=== PATIENT | male | born 2000 ===

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

== ENCOUNTER 2021-01-01 15:19 | Outpatient (REF) | payer OTHER, SELFPAY ==
--- NOTE | ~2021-01-01 | US_ITS ---
EXAMINATION: US RETROPERITONEAL LIMITED (RENAL ONLY) CLINICAL INFORMATION: Calculus of kidney. COMPARISON: CT abdomen and pelvis 04/16/2020. Ultrasound abdomen limited 04/16/2020. Ultrasound abdomen complete 03/08/2020. KUB 05/21/2015. TECHNIQUE: Real-time imaging of the kidneys. FINDINGS: RIGHT KIDNEY: 10.0 x 4.3 x 5.1 cm (SAG x AP x TRV). The kidney is normal in size, contour, and echogenicity. Renal cortical thickness is normal. No calculi or focal parenchymal lesions. No hydronephrosis. LEFT KIDNEY: 11.5 x 5.1 x 4.9 cm (SAG x AP x TRV). The kidney is normal in size, contour, and echogenicity. Renal cortical thickness is normal. There are 2 stones measuring 6 mm and 4 mm in the lower pole. There is moderate left hydronephrosis unchanged from previous exams. No renal mass US/US renal BI IMPRESSION: Normal right kidney. Left renal stones. Moderate left hydronephrosis similar to previous exams.
== END 2021-01-01 15:20 | disposition home or self-care (01) ==
LOC: HO.US 15:19
PROVIDERS: Visit Provider Urology
DX: N20.0 Calculus of kidney (principal)
CPT/HCPCS: 76775

== ENCOUNTER 2021-01-28 18:02 | Emergency (ER) | payer OTHER, SELFPAY ==
[2021-01-28 19:20] VITALS: BP 119/70; PULSE 80; RESP 18; TEMP 36.4; O2SAT 97; BMI 40.0
--- NOTE | 2021-01-28 19:54 | ED.GENADULT ---
HPI - General Adult General Chief complaint: Ear Problems Stated complaint: covid +, sore throat Time Seen by Provider: 01/28/21 19:51 Source: patient History of Present Illness HPI narrative: Patient with approximately 4 days worth of URI symptoms. Positive rhinorrhea and loss of taste and smell. Over the past few days he has had bilateral ear pain. Worse with swallowing. He was tested yesterday had [facility] for COVID and the test was positive. No prior history of otitis media. No fevers or chills. No dyspnea. Related Data Home Medications Medication Instructions Recorded Confirmed fluoxetine 10 mg capsule 1 cap PO DAILY 03/08/20 03/19/20 cetirizine 10 mg tablet 10 mg PO DAILY 03/19/20 03/19/20 escitalopram oxalate 5 mg tablet 3 mg PO Q OTHER DAY PRN 06/12/20 triamcinolone acetonide 0.1 % TOPICAL 06/12/20 topical ointment Previous Rx's Medication Instructions Recorded acetaminophen 325 mg tablet 650 mg PO Q6H PRN #14 tab 03/09/20 (Tylenol) ibuprofen 800 mg tablet 800 mg PO Q8H PRN #14 tab 03/09/20 ondansetron HCl 4 mg tablet 4 mg PO Q8H PRN #10 tab 03/09/20 (Zofran) allopurinol 100 mg tablet 100 mg PO DAILY #90 tab 03/19/20 pyridoxine (vitamin B6) 100 mg 100 mg PO DAILY 90 Days #90 tab 03/19/20 tablet ondansetron HCl 4 mg tablet 4 mg PO Q8H PRN #10 tab 04/17/20 (Zofran) ibuprofen 400 mg tablet 400 mg PO Q6H PRN #20 tab 05/18/20 omeprazole 40 mg capsule,delayed 40 mg PO DAILY #20 cap 07/15/20 release sucralfate 1 gram tablet 1 g PO TID #30 tab 07/15/20 pyridoxine (vitamin B6) 100 mg 100 mg PO DAILY #90 tab 09/11/20 tablet acetaminophen 500 mg tablet 1,000 mg PO QID PRN #30 tab 10/13/20 cyclobenzaprine 5 mg tablet 5 mg PO TID PRN #10 tab 10/13/20 ibuprofen 600 mg tablet 600 mg PO Q6H PRN #20 tab 10/13/20 erythromycin 5 mg/gram (0.5 %) eye 0.5 inch OPHTHALMIC (EYE) QID 7 12/20/20 ointment Days #3.5 g oxymetazoline 0.05 % nasal mist 2 spray INTRANASAL Q12H PRN 3 Days 01/28/21 (Afrin (oxymetazoline)) ml Allergies Allergy/AdvReac Type Severity Reaction Status Date / Time No Known Allergies Allergy Verified 07/14/20 21:43 [No Known Allergies*] Review of Systems Constitutional: Constitutional: Denies fever(s) ENT: Comments: Rhinorrhea. Bilateral ear pain. Loss of taste and smell Cardiovascular: Comments: No chest pain Respiratory: Comments: Cough without dyspnea Gastrointestinal: Comments: No nausea vomiting PMFSH Past Medical History Medical History Kidney stones Migraines Surgical History History of removal of cyst Social History Social History Alcohol intake: never Advance Directives: No Advance Directives Information Provided: Yes Physical Exam Vital Signs: Vital Signs: Last Vital Signs Temp 97.6 F 01/28/21 19:20 Pulse 80 01/28/21 19:20 Resp 18 01/28/21 19:20 BP 119/70 01/28/21 19:20 Pulse Ox 97 01/28/21 19:20 Body Mass Index 40.0 Const: Other: Awake alert no acute distress HENMT: Other: Bilateral TMs with effusions but no erythema or purulence. Canals normal. Throat is normal. Resp: Other: Clear and equal bilaterally without wheezes rales or rhonchi Cardio: Other: Regular in rhythm Skin: Other: Warm pink and dry Course Course Course Narrative: COVID-19 upper respiratory infection without evidence of COVID-19 pneumonia. Bilateral TM effusions without evidence of otitis media Discharge Plan Discharge Clinical Impression: COVID-19 Patient Disposition: Home, Self-Care Instructions: Covid-19 Viral Syndrome and Novel Coronavirus (ED) Hey/Ath Prescriptions: New Afrin (oxymetazoline) 0.05 % mist 2 spray intranasal Q12H PRN (Reason: nasal congestion) 3 Days RF: 0 No Action pyridoxine (vitamin B6) 100 mg tablet 100 mg PO DAILY Qty: 90 RF: 1 fluoxetine 10 mg capsule 1 cap PO DAILY RF: 0 ibuprofen 800 mg tablet 800 mg PO Q8H PRN (Reason: pain) Qty: 14 RF: 0 acetaminophen [Tylenol] 325 mg tablet 650 mg PO Q6H PRN (Reason: pain) Qty: 14 RF: 0 ondansetron HCl [Zofran] 4 mg tablet 4 mg PO Q8H PRN (Reason: nausea and vomiting) Qty: 10 RF: 0 acetaminophen 500 mg tablet 1,000 mg PO QID PRN (Reason: pain) Qty: 30 RF: 0 cyclobenzaprine 5 mg tablet 5 mg PO TID PRN (Reason: muscle spasm) Qty: 10 RF: 0 ibuprofen 600 mg tablet 600 mg PO Q6H PRN (Reason: pain) Qty: 20 RF: 0 ondansetron HCl [Zofran] 4 mg tablet 4 mg PO Q8H PRN (Reason: nausea and vomiting) Qty: 10 RF: 0 ibuprofen 400 mg tablet 400 mg PO Q6H PRN (Reason: pain) Qty: 20 RF: 0 omeprazole 40 mg capsule,delayed release(DR/EC) 40 mg PO DAILY Qty: 20 RF: 0 sucralfate 1 gram tablet 1 g PO TID Qty: 30 RF: 0 erythromycin 5 mg/gram (0.5 %) ointment 0.5 inch ophthalmic (eye) QID 7 Days Qty: 3.5 RF: 0 cetirizine 10 mg tablet 10 mg PO DAILY RF: 0 allopurinol 100 mg tablet 100 mg PO DAILY Qty: 90 RF: 3 pyridoxine (vitamin B6) 100 mg tablet 100 mg PO DAILY 90 Days Qty: 90 RF: 0
== END 2021-01-28 20:19 | disposition home or self-care (01) ==
PROVIDERS: Emergency Provider Emergency Medicine; PCP Pediatrics
DX: U07.1 COVID-19 (principal); R43.8 Other disturbances of smell and taste; Z79.899 Other long term (current) drug therapy
CPT/HCPCS: 99283

== ENCOUNTER → 2021-02-04 10:41 | Outpatient (BNVA) | payer OTHER, SELFPAY | PROVIDERS: PCP Pediatrics; Visit Provider Urology ==

== ENCOUNTER 2021-03-08 17:33 | Emergency (ER) | payer OTHER, SELFPAY ==
[2021-03-08 17:35] VITALS: BP 129/54; PULSE 80; RESP 19; TEMP 36.6; O2SAT 99; BMI 41.4
[2021-03-08 18:41] VITALS: BP 103/61; PULSE 89; RESP 16; O2SAT 98
--- NOTE | 2021-03-08 18:47 | ED_ITS ---
HPI - Abdominal Pain General Chief Complaint: Abdominal Pain Stated Complaint: Abdominal pain Time Seen by Provider: 03/08/21 18:42 Source: patient Mode of arrival: ambulatory Limitations: no limitations History of Present Illness HPI narrative: Patient comes emergency room complaining of left upper quadrant pain since this morning after eating breakfast Patient complaining of nausea, no vomiting, no diarrhea. Denies fever chills. Related Data Home Medications Medication Instructions Recorded Confirmed fluoxetine 10 mg capsule 1 cap PO DAILY 03/08/20 03/19/20 cetirizine 10 mg tablet 10 mg PO DAILY 03/19/20 03/19/20 escitalopram oxalate 5 mg tablet 3 mg PO Q OTHER DAY PRN 06/12/20 triamcinolone acetonide 0.1 % TOPICAL 06/12/20 topical ointment escitalopram oxalate 10 mg tablet 10 mg PO DAILY 02/04/21 ketotifen fumarate 0.025 % (0.035 1 drp OPHTHALMIC (EYE) BID 02/04/21 %) eye drops Previous Rx's Medication Instructions Recorded acetaminophen 325 mg tablet 650 mg PO Q6H PRN #14 tab 03/09/20 (Tylenol) ibuprofen 800 mg tablet 800 mg PO Q8H PRN #14 tab 03/09/20 ondansetron HCl 4 mg tablet 4 mg PO Q8H PRN #10 tab 03/09/20 (Zofran) allopurinol 100 mg tablet 100 mg PO DAILY #90 tab 03/19/20 pyridoxine (vitamin B6) 100 mg 100 mg PO DAILY 90 Days #90 tab 03/19/20 tablet ondansetron HCl 4 mg tablet 4 mg PO Q8H PRN #10 tab 04/17/20 (Zofran) ibuprofen 400 mg tablet 400 mg PO Q6H PRN #20 tab 05/18/20 omeprazole 40 mg capsule,delayed 40 mg PO DAILY #20 cap 07/15/20 release sucralfate 1 gram tablet 1 g PO TID #30 tab 07/15/20 acetaminophen 500 mg tablet 1,000 mg PO QID PRN #30 tab 10/13/20 cyclobenzaprine 5 mg tablet 5 mg PO TID PRN #10 tab 10/13/20 ibuprofen 600 mg tablet 600 mg PO Q6H PRN #20 tab 10/13/20 erythromycin 5 mg/gram (0.5 %) eye 0.5 inch OPHTHALMIC (EYE) QID 7 12/20/20 ointment Days #3.5 g oxymetazoline 0.05 % nasal mist 2 spray INTRANASAL Q12H PRN 3 Days 01/28/21 (Afrin (oxymetazoline)) ml pyridoxine (vitamin B6) 100 mg 100 mg PO DAILY 90 Days #90 tab 02/04/21 tablet omeprazole 20 mg capsule,delayed 20 mg PO DAILY #14 cap 03/08/21 release simethicone 180 mg capsule (Gas 180 mg PO BID PRN #14 cap 03/08/21 Relief (simethicone)) Allergies Allergy/AdvReac Type Severity Reaction Status Date / Time No Known Allergies Allergy Verified 02/04/21 10:42 [No Known Allergies*] Review of Systems Review of Systems Constitutional : No Weight loss, No Fever, No Chills, No Night Sweats, No Fati nahum, No Malaise ENT/Mouth : No Hearing loss, No Ear Pain, No Nasal Congestion, No Sinus Pain, No Hoarseness, No sore throat, No Rhinorrhea, No Swallowing Difficulty Eyes: No Eye Pain, No Swelling, No Redness, No Foreign Body, No Discharge, No Vision Changes Cardiovascular : No Chest Pain, No SOB, No Dyspnea on Exertion, No Orthopnea, No Edema, No Palpitations Respiratory : No Cough, No Sputum, No Wheezing, No Smoke Exposure, No Dyspnea Gastrointestinal : Complaining of Nausea, No Vomiting, No Diarrhea, No Constipation, complaining of constant left upper quadrant pain, No Hematochezia, No Melena Genitourinary : no irregular bleeding, No Dysuria, No Urinary Frequency, No Hematuria, No Urinary Incontinence, No Urgency, No Flank Pain, No Urinary Flow Changes, No Hesitancy Musculoskeletal : No joint pain, No Myalgias, No Joint Swelling Skin : No Skin Lesions, No rash Neuro : No Weakness, No Numbness, No Paresthesias, No Loss of Consciousness, No Dizziness, No Headache Psych : No Anxiety/Panic, No Depression, No SI/HI/AH/VH, No Social Issues, Heme/Lymph: No Bruising, No Bleeding,No Lymphadenopathy Endocrine : No Polyuria, No Polydipsia, No Temperature Intolerance Physical Exam Vital Signs: Vital Signs: Last Vital Signs Temp 98 F 03/08/21 17:35 Pulse 89 03/08/21 18:41 Resp 16 03/08/21 18:41 BP 103/61 03/08/21 18:41 Pulse Ox 98 03/08/21 18:41 Body Mass Index 41.4 Const: Other: Appearance: Alert. Oriented X3. No acute distress. Well- appearing Eyes: Pupils equal, round and reactive to light. ENT: Pharynx normal. Neck: Normal inspection. Neck supple. No lymph nodes noted. No crepitus CVS: Normal heart rate and rhythm. Pulses normal. Normal S1 and S2 Respiratory: No respiratory distress. Breath sounds normal. No Wheezing. No rales Abdomen: Soft and nontender. No rigidity. No distention. Skin: Skin warm and dry. Normal skin color. Normal skin turgor. Extremities: No lower extremity edema. No lower extremity edema. No Lacerations. No Rash Neuro: Oriented X 3. No motor deficit. No sensory deficit. Moving all extermities. No slurred speech. Course Course Course Narrative: Patient feels better after GI cocktail. Patient's labs do not show any acute pathology. Patient likely having gastritis. MDM - Abdominal Pain Lab Data Result diagrams: 03/08/21 19:05 03/08/21 19:05 Labs: Lab Results 03/08/21 03/08/21 03/08/21 Range/Units 19:05 19:05 20:28 WBC 10.5 (4.8-10.8) X10*3/uL RBC 4.83 (4.60-5.80) X10*6/uL Hgb 14.5 (14.0-18.0) g/dl Hct 43.0 (42.0-52.0) % MCV 89.0 (80.0-98.0) fL MCH 30.0 (27.0-33.0) pg MCHC 33.7 (31.0-36.0) g/dl RDW 12.2 (11.0-16.0) % Plt Count 360 (160-400) X10*3/uL MPV 8.6 L (9.4-12.4) fL Immature Gran % (Auto) 0.3 (0.0-0.4) % Neut % (Auto) 56.9 (45-73) % Lymph % (Auto) 28.3 (20-40) % [place] % (Auto) 11.5 H (2-11) % Eos % (Auto) 2.5 (0-4) % Baso % (Auto) 0.5 (0-2) % Lymph # (Auto) 3.0 (1.2-4.9) X10*3/uL [place] # (Auto) 1.2 (0.1-1.2) X10*3/uL Eos # (Auto) 0.3 (0.0-0.4) X10*3/uL Baso # (Auto) 0.1 (0.0-0.2) X10*3/uL Abs Immat Gran (auto) 0.03 (0.00-0.03) X10*3/uL Absolute Neuts (auto) 6.0 (2.0-8.3) x10*3/uL Absolute Nucleated RBC 0.000 (0.0-0.012) X10*3/uL Nucleated RBC % (auto) 0.0 (0.0-0.2) /100WBC Sodium 140 (135-145) mmol/L Potassium 3.9 (3.3-5.1) mmol/L Chloride 103 (96-108) mmol/L Carbon Dioxide 29 (22-29) mmol/L Anion Gap 12 (12-20) BUN 14 (9-16) mg/dL Creatinine 0.87 (0.5-1.4) mg/dL Estim Creat Clear Calc 146.7 Estimated GFR > 60 Random Glucose 69 D (60-115) mg/dL Calcium 9.2 D (8.4-10.2) mg/dL Total Bilirubin 0.2 (0.0-1.0) mg/dL Direct Bilirubin < 0.2 (0.0-0.5) mg/dL AST 21 (5-37) U/L ALT 36 (0-40) U/L Alkaline Phosphatase 116 (39-117) U/L Total Protein 7.8 (6.5-8.0) g/dL Albumin 4.3 (3.5-5.0) g/dL Lipase 35 (8-78) U/L Urine Color YELLOW Urine Appearance CLEAR Urine pH 6.0 (5.0-8.0) Ur Specific [place] >= 1.030 H (1.005-1.025) Urine Protein NEG (NEG-TRACE) MG/DL Urine Glucose (UA) NEG (NEG) MG/DL Urine Ketones NEG (NEG) MG/DL Urine Blood NEG (NEG) Urine Nitrite NEG (NEG) Ur Leukocyte Esterase NEG (NEG) Discharge Plan Discharge Clinical Impression: Gastritis Qualifiers: Gastritis type: unspecified gastritis Chronicity: acute Gastritis bleeding: without bleeding Qualified Code(s): K29.00 - Acute gastritis without bleeding Patient Disposition: Home, Self-Care Instructions: Gastritis (ED) Additional Instructions: Please follow-up with your primary care physician tomorrow. If you have any worsening or new symptoms, please return to the emergency room or call 911 Prescriptions: New omeprazole 20 mg capsule,delayed release(DR/EC) 20 mg PO DAILY Qty: 14 RF: 0 simethicone [Gas Relief (simethicone)] 180 mg capsule 180 mg PO BID PRN (Reason: abdominal distention) Qty: 14 RF: 0 No Action fluoxetine 10 mg capsule 1 cap PO DAILY RF: 0 ibuprofen 800 mg tablet 800 mg PO Q8H PRN (Reason: pain) Qty: 14 RF: 0 acetaminophen [Tylenol] 325 mg tablet 650 mg PO Q6H PRN (Reason: pain) Qty: 14 RF: 0 ondansetron HCl [Zofran] 4 mg tablet 4 mg PO Q8H PRN (Reason: nausea and vomiting) Qty: 10 RF: 0 acetaminophen 500 mg tablet 1,000 mg PO QID PRN (Reason: pain) Qty: 30 RF: 0 cyclobenzaprine 5 mg tablet 5 mg PO TID PRN (Reason: muscle spasm) Qty: 10 RF: 0 ibuprofen 600 mg tablet 600 mg PO Q6H PRN (Reason: pain) Qty: 20 RF: 0 ondansetron HCl [Zofran] 4 mg tablet 4 mg PO Q8H PRN (Reason: nausea and vomiting) Qty: 10 RF: 0 ibuprofen 400 mg tablet 400 mg PO Q6H PRN (Reason: pain) Qty: 20 RF: 0 omeprazole 40 mg capsule,delayed release(DR/EC) 40 mg PO DAILY Qty: 20 RF: 0 sucralfate 1 gram tablet 1 g PO TID Qty: 30 RF: 0 erythromycin 5 mg/gram (0.5 %) ointment 0.5 inch ophthalmic (eye) QID 7 Days Qty: 3.5 RF: 0 Afrin (oxymetazoline) 0.05 % mist 2 spray intranasal Q12H PRN (Reason: nasal congestion) 3 Days RF: 0 cetirizine 10 mg tablet 10 mg PO DAILY RF: 0 allopurinol 100 mg tablet 100 mg PO DAILY Qty: 90 RF: 3 pyridoxine (vitamin B6) 100 mg tablet 100 mg PO DAILY 90 Days Qty: 90 RF: 0 pyridoxine (vitamin B6) 100 mg tablet 100 mg PO DAILY 90 Days Qty: 90 RF: 3 PMFSH Past Medical History Medical History Kidney stones Migraines Surgical History History of removal of cyst Social History Social History Alcohol intake: never Advance Directives: No Advance Directives Information Provided: No
[2021-03-08] MEDS: Magnesium Hydrox/Alum Hydrox 30 ML ORAL.SUSP PO (19:10)
[2021-03-08] MEDS: Ondansetron ODT 4 MG TAB.RAPDIS TRANSLINGU (19:10)
[2021-03-08] MEDS: Lidocaine HCl Viscous 2 % 15 ML SOLUTION MUCOUS MEM (19:10)
[2021-03-08 19:11] LABS: MANUAL DIFF FLAG NO
[2021-03-08 19:13] LABS: Basophils Absolute Auto 0.1 X10*3/uL (0.0-0.2); Basophils Percent Auto 0.5 % (0-2); Eosinophils Absolute Auto 0.3 X10*3/uL (0.0-0.4); Eosinophils Percent Auto 2.5 % (0-4); Hemoglobin 14.5 g/dl (14.0-18.0); Imm Gran Abs Auto 0.03 X10*3/uL (0.00-0.03); Imm Gran Pct Auto 0.3 % (0.0-0.4); Lymphocytes Percent Auto 28.3 % (20-40); Mean Corpuscular HGB Conc 33.7 g/dl (31.0-36.0); Mean Platelet Volume 8.6 fL (9.4-12.4); Monocytes Absolute Auto 1.2 X10*3/uL (0.1-1.2); Monocytes Percent Auto 11.5 % (2-11); Neutrophils Percent Auto 56.9 % (45-73); Platelet Count 360 X10*3/uL (160-400); Red Blood Count 4.83 X10*6/uL (4.60-5.80); Red Cell Distribution Width 12.2 % (11.0-16.0); White Blood Count 10.5 X10*3/uL (4.8-10.8)
--- NOTE | 2021-03-08 19:14 | PC.NURSE ---
Pt c/o of abd pain and nausea. pt alert and sitting up in stretcher. Pt medicated as per emar.
[2021-03-08 19:27] LABS: Alanine Aminotransferase 36 U/L (0-40); Albumin Level 4.3 g/dL (3.5-5.0); Alkaline Phosphatase 116 U/L (39-117); Anion Gap 12 (12-20); Aspartate Amino Transferase 21 U/L (5-37); Bilirubin Direct < 0.2 mg/dL (0.0-0.5); Bilirubin Total 0.2 mg/dL (0.0-1.0); Blood Urea Nitrogen 14 mg/dL (9-16); Calcium 9.2 mg/dL (8.4-10.2); Carbon Dioxide 29 mmol/L (22-29); Chloride 103 mmol/L (96-108); Creatinine Clr Calc Pharmacy 146.7; Estimated Glomerular Filt Rate > 60; Glucose Random 69 mg/dL (60-115); Lipase 35 U/L (8-78); Potassium 3.9 mmol/L (3.3-5.1); Sodium 140 mmol/L (135-145); Total Protein 7.8 g/dL (6.5-8.0)
[2021-03-08 20:34] LABS: Appearance Urine CLEAR; Color Urine YELLOW; Glucose Urine UA NEG (NEG); Leukocyte Esterase Urine NEG (NEG); Nitrite Urine NEG (NEG); Specific Gravity - Urine >= 1.030 (1.005-1.025); Urine Blood NEG (NEG); Urine Ketones NEG (NEG); Urine Protein NEG (NEG-TRACE)
== END 2021-03-08 21:02 | disposition home or self-care (01) ==
PROVIDERS: Emergency Provider Emergency Medicine; PCP Pediatrics
DX: K29.00 Acute gastritis without bleeding (principal); R10.12 Left upper quadrant pain; Z79.899 Other long term (current) drug therapy
CPT/HCPCS: 36415; 80048; 80076; 81003; 83690; 85025; 99284

== ENCOUNTER 2022-01-12 13:12 | Outpatient (REF) | payer OTHER, SELFPAY ==
--- NOTE | ~2022-01-12 | US_ITS ---
EXAMINATION: US RETROPERITONEAL LIMITED (RENAL ONLY) CLINICAL INFORMATION: Calculus of kidney. COMPARISON: Ultrasound renal 01/01/2021. CT abdomen pelvis 04/16/2020. Ultrasound abdomen limited 04/16/2020. TECHNIQUE: Real-time imaging of the kidneys. FINDINGS: RIGHT KIDNEY: 12.5 x 5.7 x 5.8 cm (SAG x AP x TRV). The kidney is normal in size, contour, and echogenicity. Renal cortical thickness is normal. No calculi or focal parenchymal lesions. No hydronephrosis. LEFT KIDNEY: 11.6 x 5.3 x 5.2 cm (SAG x AP x TRV). The kidney is normal in size, contour, and echogenicity. Renal cortical thickness is normal. No focal parenchymal lesions. There is moderate hydronephrosis. At the interpolar aspect, a 5 mm nonobstructing calculus is seen. At the lower pole, 6 mm and 1.0 cm nonobstructing calculi are seen. US/US renal BI IMPRESSION: 1. A nonobstructing left renal calculi, as detailed. No right renal calculus is seen. 2. There is a moderate left hydronephrosis, and no right hydronephrosis is seen.
== END 2022-01-12 13:13 | disposition home or self-care (01) ==
LOC: HO.US 13:12
PROVIDERS: Visit Provider Urology
DX: N20.0 Calculus of kidney (principal)
CPT/HCPCS: 76775

== ENCOUNTER → 2022-02-04 14:28 | Outpatient (BNVA) | payer OTHER, SELFPAY | PROVIDERS: PCP Pediatrics; Visit Provider Urology | DX: N20.0 Calculus of kidney (principal); N13.30 Unspecified hydronephrosis | CPT/HCPCS: 99212 ==

== ENCOUNTER 2022-10-10 16:31 | Emergency (ER) | payer OTHER, SELFPAY ==
--- NOTE | ~2022-10-10 | XR_ITS ---
EXAMINATION: XR SHOULDER, LEFT CLINICAL INFORMATION: Pain COMPARISON: None available. TECHNIQUE: AP external rotation, Grashey, scapular Y, and axillary views of the left shoulder. FINDINGS: No evidence of acute fracture or dislocation. Glenohumeral and acromioclavicular alignment is anatomic with normal joint space. No abnormal soft tissue calcifications. Intact left clavicle. XR/XR shoulder LT min 2V IMPRESSION: No radiographic evidence of acute fracture or dislocation.
[2022-10-10 16:50] VITALS: BP 110/68; PULSE 88; RESP 18; TEMP 36.6; O2SAT 97; BMI 36.0
--- NOTE | 2022-10-10 16:51 | ED_ITS ---
HPI - Extremity Problem General Chief complaint: Extremity Injury, Upper Stated complaint: left shoulder and back pain Time Seen by Provider: 10/10/22 17:18 History of Present Illness HPI Narrative: Patient complains of left lateral neck and trapezius pain for past 2-3 days, no known injury It hurts when he moves but there is no radiation of pain no numbness weakness or tingling no muscle weakness no change to bowel or bladder He denies any rash or redness no fevers no chest pain no shortness of breath Related Data Home Medications Medication Instructions Recorded Confirmed fluoxetine 10 mg capsule 1 cap PO DAILY 03/08/20 02/04/22 cetirizine 10 mg tablet 10 mg PO DAILY 03/19/20 02/04/22 escitalopram oxalate 5 mg tablet 3 mg PO Q OTHER DAY PRN 06/12/20 02/04/22 triamcinolone acetonide 0.1 % topical 06/12/20 02/04/22 topical ointment escitalopram oxalate 10 mg tablet 10 mg PO DAILY 02/04/21 02/04/22 ketotifen fumarate 0.025 % (0.035 1 drp ophthalmic (eye) BID 02/04/21 02/04/22 %) eye drops Previous Rx's Medication Instructions Recorded acetaminophen 325 mg tablet 650 mg PO Q6H PRN pain #14 tabs 03/09/20 (Tylenol) ibuprofen 800 mg tablet 800 mg PO Q8H PRN pain #14 tabs 03/09/20 ondansetron HCl 4 mg tablet 4 mg PO Q8H PRN nausea and 03/09/20 (Zofran) vomiting #10 tabs allopurinol 100 mg tablet 100 mg PO DAILY #90 tabs 03/19/20 pyridoxine (vitamin B6) 100 mg 100 mg PO DAILY 90 days #90 tabs 03/19/20 tablet ondansetron HCl 4 mg tablet 4 mg PO Q8H PRN nausea and 04/17/20 (Zofran) vomiting #10 tabs ibuprofen 400 mg tablet 400 mg PO Q6H PRN pain #20 tabs 05/18/20 omeprazole 40 mg capsule,delayed 40 mg PO DAILY #20 caps 07/15/20 release sucralfate 1 gram tablet 1 g PO TID #30 tabs 07/15/20 acetaminophen 500 mg tablet 1,000 mg PO QID PRN pain #30 tabs 10/13/20 cyclobenzaprine 5 mg tablet 5 mg PO TID PRN muscle spasm #10 10/13/20 tabs ibuprofen 600 mg tablet 600 mg PO Q6H PRN pain #20 tabs 10/13/20 erythromycin 5 mg/gram (0.5 %) eye 0.5 inch ophthalmic (eye) QID 12/20/20 ointment Bacterial conjunctivitis 7 days #3.5 grams oxymetazoline 0.05 % nasal mist 2 spray intranasal Q12H PRN nasal 01/28/21 (Afrin (oxymetazoline)) congestion 3 days pyridoxine (vitamin B6) 100 mg 100 mg PO DAILY 90 days #90 tabs 02/04/21 tablet omeprazole 20 mg capsule,delayed 20 mg PO DAILY #14 caps 03/08/21 release simethicone 180 mg capsule (Gas 180 mg PO BID PRN abdominal 03/08/21 Relief (simethicone)) distention #14 caps cyclobenzaprine 5 mg tablet 5 mg PO TID PRN muscle spasm #14 10/10/22 tabs ibuprofen 600 mg tablet 600 mg PO Q6H PRN pain #20 tabs 10/10/22 Allergies Allergy/AdvReac Type Severity Reaction Status Date / Time No Known Allergies Allergy Verified 02/02/22 11:29 [No Known Allergies*] [facility], LAT[facility] Past Medical History Source: nursing notes reviewed Medical History Kidney stones Migraines Surgical History History of removal of cyst Social History Social History Alcohol intake: never Advance Directives: No Advance Directives Information Provided: No Physical Exam Vital Signs: Vital Signs: Last Vital Signs Temp 97.8 F 10/10/22 16:50 Pulse 88 10/10/22 16:50 Resp 18 10/10/22 16:50 BP 110/68 10/10/22 16:50 Pulse Ox 97 10/10/22 16:50 O2 Del Method Room Air 10/10/22 16:50 BMI result Body Mass Index 36.0 General appearance is no distress Head is normocephalic atraumatic The neck is supple with good range back and forth but pain with lateral motion and limited range of motion in lateral motion, there is tenderness to the left lateral lower neck as well as tenderness to the left trapezius Skin of the neck and trapezius is totally normal there is no swelling no redness no warmth no rash Chest is clear to auscultation bilateral no chest wall tenderness Chest wall is normal in appearance no rash Heart no murmur No tenderness to chest wall Abdomen soft nontender Extremities full range of motion x4 including left shoulder The back no significant tenderness except posterior trapezius, full range of motion 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 Pain is worse with full abduction of the arm and rotation of the head to the left. Plan: x-ray shoulder Patient likely has strained or irritated trapezius muscle, no neurologic deficit no sign of any skin infection, and patient is treated with Motrin and muscle relaxer and well-appearing patient is discharged Discharge Plan Discharge Clinical Impression: Neck pain, Trapezius strain Patient Disposition: Home, Self-Care Additional Instructions: Pain is likely from strained muscles in the left side of neck and trapezius muscle This usually resolves on its own in a few days Motrin may reduce inflammation and muscle relaxer if needed but it may cause drowsiness so only for home use Follow with her doctor next week if not better Return any time for any worse condition or any concerns Prescriptions: New ibuprofen 600 mg tablet 600 mg PO Q6H PRN (Reason: pain) Qty: 20 0RF cyclobenzaprine 5 mg tablet 5 mg PO TID PRN (Reason: muscle spasm) Qty: 14 0RF No Action fluoxetine 10 mg capsule 1 cap PO DAILY ibuprofen 800 mg tablet 800 mg PO Q8H PRN (Reason: pain) Qty: 14 0RF acetaminophen [Tylenol] 325 mg tablet 650 mg PO Q6H PRN (Reason: pain) Qty: 14 0RF ondansetron HCl [Zofran] 4 mg tablet 4 mg PO Q8H PRN (Reason: nausea and vomiting) Qty: 10 0RF acetaminophen 500 mg tablet 1,000 mg PO QID PRN (Reason: pain) Qty: 30 0RF cyclobenzaprine 5 mg tablet 5 mg PO TID PRN (Reason: muscle spasm) Qty: 10 0RF ibuprofen 600 mg tablet 600 mg PO Q6H PRN (Reason: pain) Qty: 20 0RF ondansetron HCl [Zofran] 4 mg tablet 4 mg PO Q8H PRN (Reason: nausea and vomiting) Qty: 10 0RF ibuprofen 400 mg tablet 400 mg PO Q6H PRN (Reason: pain) Qty: 20 0RF omeprazole 40 mg capsule,delayed release(DR/EC) 40 mg PO DAILY Qty: 20 0RF sucralfate 1 gram tablet 1 g PO TID Qty: 30 0RF erythromycin 5 mg/gram (0.5 %) ointment 0.5 inch ophthalmic (eye) QID 7 Days Qty: 3.5 0RF Afrin (oxymetazoline) 0.05 % mist 2 spray intranasal Q12H PRN (Reason: nasal congestion) 3 Days 0RF omeprazole 20 mg capsule,delayed release(DR/EC) 20 mg PO DAILY Qty: 14 0RF simethicone [Gas Relief (simethicone)] 180 mg capsule 180 mg PO BID PRN (Reason: abdominal distention) Qty: 14 0RF cetirizine 10 mg tablet 10 mg PO DAILY allopurinol 100 mg tablet 100 mg PO DAILY Qty: 90 3RF pyridoxine (vitamin B6) 100 mg tablet 100 mg PO DAILY 90 Days Qty: 90 0RF escitalopram oxalate 5 mg tablet 3 mg PO Q OTHER DAY PRN triamcinolone acetonide 0.1 % ointment topical escitalopram oxalate 10 mg tablet 10 mg PO DAILY ketotifen fumarate 0.025 % (0.035 %) drops 1 drp ophthalmic (eye) BID pyridoxine (vitamin B6) 100 mg tablet 100 mg PO DAILY 90 Days Qty: 90 3RF Stand Alone Forms: Work/School Release
--- OUTSIDE RECORDS SUMMARY | 2022-10-10 17:53 | XMS_ITS | Continuity of Care Document ---
Author Name Unknown Organization [facility] Address [address] [place] [address]- Care Team Providers Care Pipe Racker Name Role Phone Gwen MOHR, Evie Primary Care Physician Encounter [facility] [place] Date(s): 04/17/20 - 04/22/20 [facility] [address] [place] [address]- Discharge Disposition: A-D/C Home Attending Physician: Raymond Capps MD Admitting Physician: Raymond Capps MD Referring Physician: Not on Staff, Referring MD Allergies, Adverse Reactions, Alerts Substance Reaction Severity Status NKA Active Immunizations Not Given Vaccine Date Status Refusal Reason pneumococcal 23-valent vaccine 04/18/20 Not Given Patient Refuses Medications LORazepam 1 mg oral tablet See Instructions, 1 tablet by mouth daily for two days. Then take 1/2 tablet by mouth for two days.Then stop, # 3 tablet, 0 Refills, Maintenance, 04/22/20 13:36:00 EST, [facility]/pharmacy #[id number], Partial fill upon patient request if the prescription is for... Start Date: 04/22/20 Status: Ordered Vital Signs Most recent to oldest [Reference Range]: 1 2 3 Height 167 cm (04/22/20 10:16 AM) 167 cm (04/21/20 9:31 PM) 167 cm (04/21/20 10:20 AM) Weight 60.4 kg (04/17/20 8:39 PM) 50 kg (04/17/20 6:48 PM) Oxygen Saturation [94-100 %] 100 % (04/22/20 10:16 AM) 99 % (04/21/20 9:31 PM) 100 % (04/21/20 10:20 AM) Pulse Rate [55-90 bpm] 101 bpm *H* (04/22/20 10:16 AM) 68 bpm (04/21/20 9:31 PM) 97 bpm *H* (04/21/20 10:20 AM) Body Mass Index [18.5-24.99] 21.66 (04/17/20 8:39 PM) Blood Pressure [90-138/55-84 mm Hg] 134/93mm Hg (04/22/20 10:16 AM) 131/73mm Hg (04/21/20 9:31 PM) 129/70mm Hg (04/21/20 10:20 AM) Respiratory Rate [16-30 br/min] 16 br/min (04/22/20 10:16 AM) 16 br/min (04/22/20 9:00 AM) 16 br/min (04/21/20 9:31 PM) Temperature [96.8-100.4 DegF] 97.1 DegF (04/22/20 10:16 AM) 97.8 DegF (04/21/20 9:31 PM) 98 DegF (04/21/20 10:20 AM) Mode of Delivery (Oxygen) Room air (04/21/20 9:31 PM) Room air (04/21/20 10:20 AM) Room air (04/20/20 9:36 PM) Blood pressure sites Arm, left (04/22/20 10:16 AM) Arm, left (04/21/20 10:20 AM) Arm, right (04/20/20 9:36 PM) Temperature Route Tympanic (04/22/20 10:16 AM) Tympanic (04/21/20 10:20 AM) Oral (04/20/20 9:36 PM) Dry Weight 60.4 kg (04/17/20 8:39 PM) 50 kg (04/17/20 6:48 PM) Sensory deficits None (04/17/20 8:39 PM)
--- OUTSIDE RECORDS SUMMARY | 2022-10-10 17:53 | XMS_ITS | Continuity of Care Document ---
Author Name Unknown Organization [facility] Address [address] [place] [address]- Care Team Providers Care Pediatric Audiologist Name Role Phone Murphy De Leon MD Primary Care Physician [place] [facility] [id number] Date(s): 09/07/22 - 10/07/22 [facility] [address] [place], [place] [address] Allergies, Adverse Reactions, Alerts No Known Allergies Medications acetaminophen 325 mg oral tablet 650 mg, 2, tablet, By Mouth, Every 4 hours, not to exceed 4000 mg/day, # 60 tablet, Refills 0, Tot.Refills 0, Maintenance, 11/03/19 8:35:00 EDT, Print Requisition Start Date: 11/03/19 Stop Date: 11/08/19 Status: Ordered Escitalopram By Mouth, Daily, 0 Refills, Maintenance, 06/27/20 15:12:00 EST, Partial fill upon patient request if the prescription is for a schedule II opioid drug. Start Date: 06/27/20 Status: Ordered Vitamin B6 Daily, 0 Refills, Maintenance, 06/27/20 15:12:00 EST, Partial fill upon patient request if the prescription is for a schedule II opioid drug. Start Date: 06/27/20 Status: Ordered ZyrTEC 10 mg oral tablet 1 tablet = 10 mg, By Mouth, Daily, # 30 tablet, 0 Refills, Maintenance, 10/13/19 10:01:00 EDT, Tablet Start Date: 10/13/19 Status: Ordered Problem List Condition Confirmation Course Effective Dates Status Health St atus Informant Rash 1 Confirmed Active Kidney stone Confirmed Active 1ezcema Social History Social History Type Response Smoking Status Never (less than 100 in lifetime) entered on: 12/01/18 Sex Male Patient Care team information Care Team Personnel Name: Murphy De Leon MD Position: [facility] General Pediatrics MD Member Role: PCP Address: Address: [address] [place] [address] [facility] [place], [place] - Care Team Related Persons Name: SANDHYA ENCISOCHETRUKHSANA Address: home [address], [place] Name: PIPO RIVERA Address: home [place], [place] Name: DANDRE MORALES Address: home [address], [place]
--- OUTSIDE RECORDS SUMMARY | 2022-10-10 17:53 | XMS_ITS | Continuity of Care Document ---
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 Start Date: 04/22/20 Status: Ordered
== END 2022-10-10 18:29 | disposition home or self-care (01) ==
PROVIDERS: Emergency Provider Emergency Medicine; PCP Internal Medicine
DX: M54.2 Cervicalgia (principal); S46.812A Strain of other muscles, fascia and tendons at shoulder and upper arm level, left arm, initial encounter; X50.0XXA Overexertion from strenuous movement or load, initial encounter; Y93.89 Activity, other specified; Y92.019 Unspecified place in single-family (private) house as the place of occurrence of the external cause; Y99.9 Unspecified external cause status
CPT/HCPCS: 73030; 99282; 99283

== ENCOUNTER → 2023-01-21 10:42 | Outpatient (REF) | payer OTHER, SELFPAY ==
--- NOTE | ~2023-01-21 | NM_ITS ---
EXAM: DYNAMIC RENAL SCINTIGRAPHY WITH LASIX CLINICAL DATA/INDICATION: Left-sided hydronephrosis. COMPARISON: Prior radionuclide scintigraphy study done on 05/14/2020 and most recent prior abdominal ultrasound done on 01/12/2022 CT of the abdomen and pelvis done on 04/16/2020. TECHNIQUE: Dynamic renal scintigraphy was performed after intravenous administration of 10 mCi Tc-99m DTPA. 40 mg of furosemide was administered at 30 minutes and continued dynamic imaging of the abdomen/pelvis was obtained for additional 15 minutes (post Lasix) only. The patient was unable to hold beyond 15 minutes post Lasix and at the request of the patient the study was stopped. Following using the restroom/voiding, an additional post void image was obtained. FINDINGS: RENAL BLOOD FLOW: Initial rapid sequence images show prompt and bilaterally symmetrical flow to the kidneys. CORTICAL FUNCTION: On the right there is prompt, symmetrical, and homogeneous cortical uptake. On the left there is delayed time to peak. Both kidneys appear normal in size. CLEARANCE: The calculated split renal function is 46.3% left, previously 44% and 53.7% right, previously 56%. Bilaterally, prompt pelvic calyceal filling is demonstrated. There is progressive tracer accumulation within the distended left renal pelvicalyceal system with significant washout after Lasix administration. The right renal pelvicalyceal system is not distended and shows progressive washout before administration of Lasix. Calculated T half of Lasix on the left is 7.75 minutes, demonstrating a nonobstructing pattern. No meaningful T1 half of Lasix on the right is calculated since the pelvicalyceal system do not show any significant retention prior to administration of Lasix. Postvoid planar imaging shows mild asymmetric retention on the left and complete clearance on the right. NM/NM renal flow w pharm int IMPRESSION: 1. Calculated split renal function is 46.3% left, previously 44% and 53.7% right, previously 56%. 2. Clearance half time demonstrates a nonobstructing pattern on the left, similar to prior study dated 05/14/2020.
== END ==
LOC: HO.NUCMED 10:42
PROVIDERS: PCP Internal Medicine; Visit Provider Urology
DX: N13.30 Unspecified hydronephrosis (principal)
CPT/HCPCS: 78708; A9539; J1940

== ENCOUNTER 2023-02-04 10:59 | Outpatient (AMB) | payer OTHER, SELFPAY ==
--- NOTE | 2023-02-04 11:02 | MHC.OFFVIS ---
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: No Accompanied by: Self / Same As Patient Allergies No Known Allergies [No Known Allergies*] Allergy (Verified 02/04/23 11:05) Medication List - Last Reconciled 02/04/23 by Joel Marcus MD acetaminophen (Tylenol) 650 mg (2 x 325 mg) PO Q6H PRN acetaminophen 1,000 mg (2 x 500 mg) PO QID PRN cetirizine 10 mg PO DAILY cyclobenzaprine 5 mg PO TID PRN erythromycin 0.5 inches ophthalmic (eye) QID 7 days escitalopram oxalate 3 mg PO Q OTHER DAY PRN escitalopram oxalate 10 mg PO DAILY fluoxetine 1 cap PO DAILY ibuprofen 400 mg PO Q6H PRN ibuprofen 600 mg PO Q6H PRN ketotifen fumarate 0.025%(0.035%) 1 drp ophthalmic (eye) BID omeprazole 20 mg PO DAILY ondansetron HCl (Zofran) 4 mg PO Q8H PRN oxymetazoline 0.05% (Afrin (oxymetazoline)) 2 sprays intranasal Q12H PRN 3 days pyridoxine (vitamin B6) 100 mg PO DAILY 90 days simethicone (Gas Relief (simethicone)) 180 mg PO BID PRN sucralfate 1 g PO TID triamcinolone acetonide 0.1% topical HPI HPI Comments History of Present Illness Details Brian is a pleasant male. He is a patient of Dr. De Leon. He is seen for the following urologic conditions - nephrolithiasis Renogram normal Repeat ultrasound 12 month Repeat renogram normal 01/23 - . Calculated split renal function is 46.3% left, previously 44% and 53.7% right, previously 56%.2. Clearance half time demonstrates a nonobstructing pattern on the left, similar to prior study dated 05/14/2020. Nephrolithiasis/Urolithiasis: Follow-up evaluation of nephrolithiasis in hydronephrosis on left side Renogram findings - prompt washout bilaterally, T half 10 minutes bilateral. Left 45%, right 55%. Chronic left mild to moderate hydronephrosis with no outlet obstruction They are here for further evaluation for nephrolithiasis and hydronephrosis - seen in the ER for left-sided flank pain. This is currently resolved. Urolithiasis was diagnosed First presentation. The patient previously had kidney stones whose composition w unknown. Prior treatment(s) include Vit B6. Prior imaging includes 07/20 , a CT (computed tomography) scan of the abdomen/pelvis (stone protocol), showing no evidence of stones, showing hydronephrosis - left side mild hydronephrosis. - 02/20 renal ultrasound with 4 mm and 6 mm left lower pole stones in mild chronic hydronephrosis - 02/21 renal ultrasound with 6 mm and 8 mm left lower pole stones in marked chronic hydronephrosis Current therapeutic plan will be to continue with imaging surveillance [facility] Medical History Kidney stones Migraines Surgical History History of removal of cyst Social History Alcohol intake: never Review of Systems Const Denies chills and Denies fever(s) Card Reports no additional complaints and Denies syncope Resp Denies cough GI Denies abdominal pain and Denies heartburn Reports as per HPI and Denies change in libido Neuro Denies syncope Psych Denies change in libido Endo Denies change in libido Physical Exam Const General: cooperative, healthy appearing, comfortable and no acute distress Orientation/consciousness: patient oriented x3 HEENT Face and sinus: Yes normal facial exam Mouth: moist mucous membranes Neck Neck: Yes normal visual inspection, Yes full ROM and Yes trachea midline Chest Chest palpation & inspection: normal inspection of the chest Resp Effort & Inspection: normal respiratory effort, able to speak in complete sentences and no respiratory distress GI Inspection: Yes normal to inspection Back/Spine/Pelvis Cervical Spine: normal cervical lordosis Thoracic/Lumbar Spine: thoracic and lumbar spine normal to inspection Skin General skin exam: no rashes or lesions noted Neuro General: patient oriented x3, gait normal, tone normal and moves all extremities Extrem General: Yes normal to inspection and Yes capillary refill normal Assessment & Plan Assessment & Plan (1) Nephrolithiasis: Code(s): N20.0 - Calculus of kidney Plan 12 month follow-up Orders: Orders US renal BI 364 Days N20.0 - Calculus of kidney Medications: Refilled pyridoxine (vitamin B6) 100 mg PO DAILY 90 days 90 tabs 3RF N20.0 - Calculus of kidney Patient Instructions: Imaging studies, laboratory and physical exam results were discussed and reviewed in detail. No major barriers to patient understanding were identified. An opportunity to ask questions regarding the treatment plan was provided. All questions were answered. The patient expressed understanding and agreement with the above treatment plan. The patient is aware they should contact our office by phone for worsening of their current condition or the appearance of new urologic symptoms. Compliance is encouraged with any medications and followup testing that is ordered. It is a privilege to participate in the urologic care of your patient. If you have any questions or concerns regarding treatment for the above conditions, or other urologic issues, please do not hesitate to contact me. The office telephone contact is [phone]. This note is constructed using voice recognition software. While every effort has been made to ensure accuracy manager procurement errors may have been included. Yours sincerely, Dr Joel Marcus MD, [facility] - Urology Providers of Expert, Compassionate Care for the Genitourinary System Coding Level of Care Code Est Pt Level 4 (80298) Diagnoses Nephrolithiasis N20.0
== END 2023-02-04 11:19 | disposition home or self-care (01) ==
PROVIDERS: PCP Internal Medicine; Visit Provider Urology
DX: N20.0 Calculus of kidney (principal)
CPT/HCPCS: 99213

== ENCOUNTER → 2023-02-04 10:59 | Outpatient (BNVA) | payer OTHER, SELFPAY | PROVIDERS: Visit Provider Urology | DX: N20.0 Calculus of kidney (principal) | CPT/HCPCS: 99212 ==

== ENCOUNTER 2023-06-25 18:08 | Emergency (ER) | payer MEDICAID, SELFPAY ==
--- NOTE | 2023-06-25 18:39 | ED_ITS ---
HPI - General Adult General Chief complaint: General Medical Stated complaint: allergies, sore throat, L ear congested Time Seen by Provider: 06/25/23 19:50 Source: patient Mode of arrival: ambulatory Limitations: no limitations History of Present Illness HPI narrative: 23 year old male with pmhx significant for migraines presents to the ED today for evaluation of sore throat and left-sided ear pain x2.5 days. He endorses pain to the left ear along with decreased/muffled hearing. Denies drainage from the ear. Denies radiation of pain. No history of diabetes. He has not been taking anything for sore throat for ear pain at home. He tested negative for covid at home. Denies recent swimming or plane rides. Denies sick contacts. Denies fever, chills, odynophagia, dysphagia, chest pain, shortness of breath, w heezing. Related Data Home Medications Medication Instructions Recorded Confirmed fluoxetine 10 mg capsule 1 cap PO DAILY 03/08/20 02/04/23 cetirizine 10 mg tablet 10 mg PO DAILY 03/19/20 02/04/23 escitalopram oxalate 5 mg tablet 3 mg PO Q OTHER DAY PRN 06/12/20 02/04/23 triamcinolone acetonide 0.1 % topical 06/12/20 02/04/23 topical ointment escitalopram oxalate 10 mg tablet 10 mg PO DAILY 02/04/21 02/04/23 ketotifen fumarate 0.025 % (0.035 1 drp ophthalmic (eye) BID 02/04/21 02/04/23 %) eye drops Previous Rx's Medication Instructions Recorded acetaminophen 325 mg tablet 650 mg (2 x 325 mg) PO Q6H PRN 03/09/20 (Tylenol) pain #14 tabs ondansetron HCl 4 mg tablet 4 mg PO Q8H PRN nausea and 04/17/20 (Zofran) vomiting #10 tabs ibuprofen 400 mg tablet 400 mg PO Q6H PRN pain #20 tabs 05/18/20 sucralfate 1 gram tablet 1 g PO TID #30 tabs 07/15/20 acetaminophen 500 mg tablet 1,000 mg (2 x 500 mg) PO QID PRN 10/13/20 pain #30 tabs erythromycin 5 mg/gram (0.5 %) eye 0.5 inch ophthalmic (eye) QID 12/20/20 ointment Bacterial conjunctivitis 7 days #3.5 grams oxymetazoline 0.05 % nasal mist 2 spray intranasal Q12H PRN nasal 01/28/21 (Afrin (oxymetazoline)) congestion 3 days omeprazole 20 mg capsule,delayed 20 mg PO DAILY #14 caps 03/08/21 release simethicone 180 mg capsule (Gas 180 mg PO BID PRN abdominal 03/08/21 Relief (simethicone)) distention #14 caps cyclobenzaprine 5 mg tablet 5 mg PO TID PRN muscle spasm #14 10/10/22 tabs ibuprofen 600 mg tablet 600 mg PO Q6H PRN pain #20 tabs 10/10/22 pyridoxine (vitamin B6) 100 mg 100 mg PO DAILY 90 days #90 tabs 02/04/23 tablet amoxicillin 875 mg-potassium 1 tab PO Q12H 7 days #14 tabs 06/25/23 clavulanate 125 mg tablet benzocaine 15 mg-menthol 2.6 mg 1 lynette mucous membrane Q2-4H PRN 06/25/23 lozenges (Cepacol Sore Throat sore throat #16 ea (benzocaine-menthol)) Allergies Allergy/AdvReac Type Severity Reaction Status Date / Time No Known Allergies Allergy Verified 02/04/23 11:05 [No Known Allergies*] Review of Systems Review of Systems: Constitutional: No fever, chills, fatigue, night sweats, weight changes ENT/Mouth: No hearing loss, nasal congestion, sinus pain, rhinorrhea, +sore throat, +left ear pain Eyes: No eye pain, swelling, redness, vision changes, discharge Cardio: No chest pain, palpitations, [place], orthopnea, peripheral edema Pulm: No SOB, cough, sputum, wheezing, dyspnea, hemoptysis GI: No nausea, vomiting, hematemesis, abdominal pain, diarrhea, constipation, hematochezia, melena : No irregular bleeding, dysuria, frequency, urgency, hesitancy, hematuria, flank pain MSK: No back pain, neck pain, joint pain, myalgias Skin: No lesions, rashes Neuro: No weakness, numbness, paresthesias, LOC, dizziness, headache All other systems reviewed and are negative. [facility] Past Medical History Attestation statement: The following information was validated with the patient. Source: old records reviewed and nursing notes reviewed Medical History Kidney stones Migraines Surgical History History of removal of cyst Social History Social History Alcohol intake: never Advance Directives: No Advance Directives Information Provided: No Physical Exam ED Vital Signs: Vital Signs - 24 hr 06/25/23 18:42 Temperature 98.2 F Pulse Rate 83 Respiratory Rate 17 Blood Pressure 98/54 L Pulse Oximetry 97 Oxygen Delivery Method Room Air BMI result Body Mass Index 39.0 Vital signs stable, afebrile Const General: cooperative, healthy appearing, comfortable, no acute distress, alert and awake Orientation/consciousness: patient oriented x3 Limitations: no limitations HENMT Other: + posterior oropharynx erythematous, no edema, uvula is midline, no tonsilar exudates or peritonsillar masses, controlling secretions and speaking in complete sentences. + pain on manipulation of left pinna. No mastoid tenderness. Left EAC without erythema, edema or discharge. TM intact, erythematous, bulging. no effusion. + No pain on manipulation of right pinna or tragus. No mastoid tenderness. Right EAC without erythema, edema or discharge. TM intact without erythema, effusion, or bulging. Head: Yes normal to inspection, Yes normocephalic and Yes atraumatic General nose exam: Normal external nose present and No nasal discharge present Face and sinus: Yes normal facial exam and Yes sinuses nontender Eyes General: appearance normal, both eyes and all related structures Conjunctivae: conjunctivae normal Sclerae: sclerae normal Pupils: Equal, round and reactive pupils present Neck Other: + no cervical, submandibular or submental LAD. Neck: Yes normal visual inspection and Yes full ROM Resp Effort & Inspection: normal respiratory effort and able to speak in complete sentences Auscultation: clear to auscultation bilaterally Cardio Rate: regular rate Rhythm: regular rhythm GI Inspection: Yes normal to inspection Palpation (GI): Soft to palpation and nontender Skin General skin exam: no rashes or lesions noted Neuro General: patient oriented x3, gait normal and moves all extremities Cranial nerves: Yes Equal, round and reactive pupils present Extrem General: Yes normal to inspection Course Course Course Narrative: 2013- Patient has tested negative for covid, flu, rsv, and strep throat. Augmentin sent to pharmacy for left otitis media. Cepacol throat lozenges sent to pharmacy for sore throat. Discussed all work up results and treatment plan with patient. Patient has remained stable throughout ED visit today. Discussed worrisome signs and symptoms and when to return to the ED. All questions answered at this time. Patient is agreeable with disposition and stable for cal guzmán. Medical Decision Making Medical Decision Making [facility] Narrative: 23 year old male with pmhx significant for migraines presents to the ED today for evaluation of sore throat and left-sided ear pain x2.5 days. Afebrile. Nontoxic appearing and in NAD. On exam, discomfort on manipulation of left pinna. no tragus or mastoid tenderness. left EAC without erythema or edema. No discharge or excessive cerumen. TM intact, erythematous, and bulging. no effusion. Posterior oropharynx WNL. Clinical concern for otitis media vs otitis externa. Unlikely mastoiditis, malignant otitis externa. Clinical concern for strep throat, mono, viral syndrome. Unlikely P[employer] C[employer]TER, retropharyngeal abscess, dental abscess, epiglottis, acute respiratory distress, pneumonia. Plan for serology and disposition. Differential Diagnosis Differential Diagnoses: The differential diagnosis associated with the presentation includes as above. Admission/Observation Not indicated Lab Data [facility] Lab Attestation statement: I reviewed the patient's lab results. as above Labs: Lab Results 06/25/23 Range/Units 18:50 Influenza Type A (PCR) NEGATIVE (Negative) Influenza Type B (PCR) NEGATIVE (Negative) RSV RNA Qual (PCR) NEGATIVE (Negative) SARS-CoV-2 RNA (RT-PCR) NEGATIVE (Negative) S. pyogenes GrpA HARVINDER Negative (Negative) External Record Review External record reviewed: Inpatient record Prescription Management I considered prescription management with: Pain Medication and Antibiotic Critical Care Time Critical Care Time Critical Care Time: No Discharge Plan Discharge Clinical Impression: Acute left otitis media, Sore throat Patient Disposition: Home, Self-Care Instructions: Ear Infection (ED) Additional Instructions: You were evaluated in the ED today for sore throat and left ear pain. You tested negative for covid, flu, rsv, and strep throat. You were noted to have an infection of your inner left ear called otitis media. Augmentin is an antibiotic that has been sent to your pharmacy. Take this as prescribed and to completion. Do not stop taking these early or skip any doses as this may cause the infection to return or worsen. On amoxicillin-clavulanate, softer bowel movements are to be expected. Call your provider if you move your bowels more than 4 times a day, your bowel movements are almost all liquid, or you get a rash.? Cepacol throat lozenges have been sent to your pharmacy to help with sore throat. Avoid sticking anything in the ears such as Qtips. Follow up with PCP as needed. If you do not have one, a referral has been provided to you. Return for new or worsening symptoms. In the case of an emergency, call 911. Prescriptions: New amoxicillin-pot clavulanate 875-125 mg tablet 1 tab PO Q12H 7 Days Qty: 14 0RF Cepacol Sore Throat (marcie-men) 15-2.6 mg lozenge 1 lynette mucous membrane Q2-4H PRN (Reason: sore throat) Qty: 16 0RF No Action fluoxetine 10 mg capsule 1 cap PO DAILY acetaminophen [Tylenol] 325 mg tablet 650 mg PO Q6H PRN (Reason: pain) Qty: 14 0RF acetaminophen 500 mg tablet 1,000 mg PO QID PRN (Reason: pain) Qty: 30 0RF ondansetron HCl [Zofran] 4 mg tablet 4 mg PO Q8H PRN (Reason: nausea and vomiting) Qty: 10 0RF ibuprofen 400 mg tablet 400 mg PO Q6H PRN (Reason: pain) Qty: 20 0RF sucralfate 1 gram tablet 1 g PO TID Qty: 30 0RF erythromycin 5 mg/gram (0.5 %) ointment 0.5 inch ophthalmic (eye) QID 7 Days Qty: 3.5 0RF Afrin (oxymetazoline) 0.05 % mist 2 spray intranasal Q12H PRN (Reason: nasal congestion) 3 Days 0RF omeprazole 20 mg capsule,delayed release(DR/EC) 20 mg PO DAILY Qty: 14 0RF simethicone [Gas Relief (simethicone)] 180 mg capsule 180 mg PO BID PRN (Reason: abdominal distention) Qty: 14 0RF ibuprofen 600 mg tablet 600 mg PO Q6H PRN (Reason: pain) Qty: 20 0RF cyclobenzaprine 5 mg tablet 5 mg PO TID PRN (Reason: muscle spasm) Qty: 14 0RF cetirizine 10 mg tablet 10 mg PO DAILY escitalopram oxalate 5 mg tablet 3 mg PO Q OTHER DAY PRN triamcinolone acetonide 0.1 % ointment topical escitalopram oxalate 10 mg tablet 10 mg PO DAILY ketotifen fumarate 0.025 % (0.035 %) drops 1 drp ophthalmic (eye) BID pyridoxine (vitamin B6) 100 mg tablet 100 mg PO DAILY 90 Days Qty: 90 3RF [place]: [facility] [facility] [place] [facility] [facility] [place]Provider Group] Stand Alone Forms: Work/School Release Interventions: ED Discharge Assessment Last Done: 06/25/23 20:51 Discharge Date/Time: 06/25/23 20:51 Print Language: Gabonese
[2023-06-25 18:42] VITALS: BP 98/54; PULSE 83; RESP 17; TEMP 36.8; O2SAT 97; BMI 39.0
[2023-06-25 19:15] LABS: IDNOW Serial# 6674DD1D; Strep A Nucleic Acid Negative (Negative)
[2023-06-25 19:38] LABS: Influenza A PCR NEGATIVE (Negative); Influenza B PCR NEGATIVE (Negative); Resp Syncy Virus RNA Qual PCR NEGATIVE (Negative); SARS COV2 PCR INHOUSE NEGATIVE (Negative)
--- NOTE | 2023-06-25 20:50 | PC.NURSE ---
Patient discharged by triage provider
== END 2023-06-25 20:51 | disposition home or self-care (01) ==
PROVIDERS: Physician Assistant Medical; Emergency Provider Internal Medicine; PCP Internal Medicine
DX: H66.92 Otitis media, unspecified, left ear (principal); J02.9 Acute pharyngitis, unspecified; H92.02 Otalgia, left ear; Z11.52 Encounter for screening for COVID-19; Z20.828 Contact with and (suspected) exposure to other viral communicable diseases
CPT/HCPCS: 0241U; 87651; 99282; 99283

== ENCOUNTER 2023-10-03 12:28 | Emergency (ER) | payer OTHER, SELFPAY ==
--- NOTE | ~2023-10-03 | XR_ITS ---
EXAMINATION: Right lower leg, ankle and foot x-ray CLINICAL INFORMATION: Rule out fracture COMPARISON: Right ankle x-ray from 2020 and right foot x-ray from 2016 TECHNIQUE: 3 views of the right foot, 3 views of the right ankle and 2 views of the right lower leg FINDINGS: Right foot: Bone alignment is normal. No fracture or dislocation. Normal joint spaces. Normal soft tissues. Right ankle: Bone alignment is normal. No fracture or dislocation. Normal ankle mortise. Normal soft tissues. Right lower leg: Bone alignment is normal. No fracture or dislocation. Normal joint spaces and soft tissues. XR/XR ankle RT 2V IMPRESSION: Unremarkable examination.
--- NOTE | ~2023-10-03 | XR_ITS ---
EXAMINATION: Right lower leg, ankle and foot x-ray CLINICAL INFORMATION: Rule out fracture COMPARISON: Right ankle x-ray from 2020 and right foot x-ray from 2016 TECHNIQUE: 3 views of the right foot, 3 views of the right ankle and 2 views of the right lower leg FINDINGS: Right foot: Bone alignment is normal. No fracture or dislocation. Normal joint spaces. Normal soft tissues. Right ankle: Bone alignment is normal. No fracture or dislocation. Normal ankle mortise. Normal soft tissues. Right lower leg: Bone alignment is normal. No fracture or dislocation. Normal joint spaces and soft tissues. XR/XR tibia fibula RT 2V IMPRESSION: Unremarkable examination.
--- NOTE | ~2023-10-03 | US_ITS ---
EXAMINATION: US VENOUS ULTRASOUND WITH DOPPLER LOWER EXTREMITY, RIGHT CLINICAL INFORMATION: Calf pain COMPARISON: None available. TECHNIQUE: Ultrasound of the deep veins is performed from the hip to the calf with compression sonography and color and pulse Doppler assessment. Spectral analysis with color-flow imaging is performed. FINDINGS: There is normal venous compression and respiratory variation and augmented flow. The visualized common femoral vein, superficial femoral vein, profunda femoral vein, popliteal vein, and the trifurcation region shows no evidence of deep venous thrombosis. There is no significant popliteal fossa cyst. US/US venous duplex LE RT IMPRESSION: No DVT demonstrated in the right lower extremity.
--- NOTE | ~2023-10-03 | XR_ITS ---
EXAMINATION: Right lower leg, ankle and foot x-ray CLINICAL INFORMATION: Rule out fracture COMPARISON: Right ankle x-ray from 2020 and right foot x-ray from 2016 TECHNIQUE: 3 views of the right foot, 3 views of the right ankle and 2 views of the right lower leg FINDINGS: Right foot: Bone alignment is normal. No fracture or dislocation. Normal joint spaces. Normal soft tissues. Right ankle: Bone alignment is normal. No fracture or dislocation. Normal ankle mortise. Normal soft tissues. Right lower leg: Bone alignment is normal. No fracture or dislocation. Normal joint spaces and soft tissues. XR/XR foot RT 2V IMPRESSION: Unremarkable examination.
[2023-10-03 12:46] VITALS: BP 102/57; PULSE 81; RESP 16; TEMP 36.5; O2SAT 98; BMI 36.1
--- NOTE | 2023-10-03 12:58 | ED.GENADULT ---
HPI - General Adult General Chief complaint: Extremity Problem Stated complaint: R ankle pain Time Seen by Provider: 10/03/23 15:25 Source: patient Mode of arrival: ambulatory Limitations: no limitations History of Present Illness ED Provider: Joshua Hwang PA-C HPI narrative: 23 yold male with no pmh presents to the ED for right calf/ankle pain after twisting right lower extremity trying preventing himself from falling while going down the stairs. Patient states no chest pain, shortness of breath, pleurisy fever, chills ,recent long travel or recent surgery. Related Data Home Medications ?Medication ?Instructions ?Recorded ?Confirmed fluoxetine 10 mg capsule 1 cap PO DAILY 03/08/20 02/04/23 cetirizine 10 mg tablet 10 mg PO DAILY 03/19/20 02/04/23 escitalopram oxalate 5 mg tablet 3 mg PO Q OTHER DAY PRN 06/12/20 02/04/23 triamcinolone acetonide 0.1 % topical 06/12/20 02/04/23 topical ointment escitalopram oxalate 10 mg tablet 10 mg PO DAILY 02/04/21 02/04/23 ketotifen fumarate 0.025 % (0.035 1 drp ophthalmic (eye) BID 02/04/21 02/04/23 %) eye drops Previous Rx's ?Medication ?Instructions ?Recorded acetaminophen 325 mg tablet 650 mg (2 x 325 mg) PO Q6H PRN 03/09/20 (Tylenol) pain #14 tabs ondansetron HCl 4 mg tablet 4 mg PO Q8H PRN nausea and 04/17/20 (Zofran) vomiting #10 tabs ibuprofen 400 mg tablet 400 mg PO Q6H PRN pain #20 tabs 05/18/20 sucralfate 1 gram tablet 1 g PO TID #30 tabs 07/15/20 acetaminophen 500 mg tablet 1,000 mg (2 x 500 mg) PO QID PRN 10/13/20 pain #30 tabs erythromycin 5 mg/gram (0.5 %) eye 0.5 inch ophthalmic (eye) QID 12/20/20 ointment Bacterial conjunctivitis 7 days #3.5 grams oxymetazoline 0.05 % nasal mist 2 spray intranasal Q12H PRN nasal 01/28/21 (Afrin (oxymetazoline)) congestion 3 days omeprazole 20 mg capsule,delayed 20 mg PO DAILY #14 caps 03/08/21 release simethicone 180 mg capsule (Gas 180 mg PO BID PRN abdominal 03/08/21 Relief (simethicone)) distention #14 caps cyclobenzaprine 5 mg tablet 5 mg PO TID PRN muscle spasm #14 10/10/22 tabs ibuprofen 600 mg tablet 600 mg PO Q6H PRN pain #20 tabs 10/10/22 pyridoxine (vitamin B6) 100 mg 100 mg PO DAILY 90 days #90 tabs 02/04/23 tablet amoxicillin 875 mg-potassium 1 tab PO Q12H 7 days #14 tabs 06/25/23 clavulanate 125 mg tablet benzocaine 15 mg-menthol 2.6 mg 1 lynette mucous membrane Q2-4H PRN 06/25/23 lozenges (Cepacol Sore Throat sore throat #16 ea (benzocaine-menthol)) naproxen 500 mg tablet 500 mg PO BID PRN pain 7 days #14 10/03/23 tabs Allergies Allergy/AdvReac Type Severity Reaction Status Date / Time No Known Allergies Allergy Verified 10/03/23 12:49 [No Known Allergies*] Review of Systems Review of Systems: right calf pain/ankle pain Yes all other systems are reviewed and are negative [facility] Past Medical History Medical History Kidney stones Migraines Surgical History History of removal of cyst Social History Social History Alcohol intake: never Advance Directives: No Advance Directives Information Provided: No Physical Exam ED Vital Signs: Vital Signs - 24 hr 10/03/23 12:46 10/03/23 15:46 10/03/23 16:59 Temperature 97.7 F 98.0 F 98.0 F Pulse Rate 81 70 70 Respiratory Rate 16 16 16 Blood Pressure 102/57 L 97/66 97/66 Pulse Oximetry 98 98 98 Oxygen Delivery Method Room Air Room Air Room Air BMI result Body Mass Index 36.1 Const General: cooperative, healthy appearing, comfortable, no acute distress, well developed, alert, awake and Physically active Orientation/consciousness: oriented to person, oriented to place, oriented to time and patient oriented x3 HENHI Head: Yes normal to inspection, Yes No palpable skull fracture present, Yes normocephalic and Yes atraumatic Ears: hearing grossly normal bilaterally, external ears normal, TM's normal bilaterally, TM normal on the right, TM normal on the left, EAC's normal, mastoids normal and no periauricular adenopathy Eyes General: appearance normal, both eyes and all related structures Neck Neck: Yes normal visual inspection, Yes full ROM, Yes no lymphadenopathy, Yes no meningeal signs, Yes trachea midline, Yes supple and No anterior neck swelling Chest Chest palpation & inspection: normal inspection of the chest and normal palpation of entire chest wall Resp Effort & Inspection: normal respiratory effort and able to speak in complete sentences Auscultation: clear to auscultation bilaterally Cardio Jugular venous distension: no JVD Heart sounds: S1 normal heart sound present and S2 normal heart sound present GI Inspection: Yes normal to inspection and No abdominal wall ecchymosis Palpation (GI): Soft to palpation, not firm, nontender, no guarding and not rigid General: Yes no CVA tenderness Back/Spine/Pelvis Back: no CVA tenderness and No back tenderness Skin General skin exam: no rashes or lesions noted, elasticity normal and turgor normal Neuro General: oriented to person, oriented to place, oriented to time, patient oriented x3, gait normal, tone normal, moves all extremities, Normal light touch and pain sensation, no meningeal signs, no focal motor deficits and CN's II-XI intact bilaterally Extrem General: Yes normal to inspection, Yes full ROM and Yes capillary refill normal Ankle/foot/toe images: 1. positive for calf tenderness on palpation. negative for ecchymosis, crepitus, redness, or deformity. motor, neuro, and vascular exam is intact. negative for signs of ahcilles tendon rupture. Psych Appearance: grossly normal, well kempt and not disheveled Course Course Course Narrative: RME: done by BRITTA Hwang. Patient presents to ED for right leg, calf, and right ankle pain for the past couple of days. Patient states go downstairs almost sure pull his leg. Physical exam negative for signs of Achilles tendon rupture. Patient has normal gait. Negative ecchymosis, swelling, bruising of right lower extremity. Positive for significant right calf pain and right ankle pain. X-ray ultrasound ordered Medical Decision Making Medical Decision Making MDM Narrative: 23 year old male presents to the ED right calf ankle pain. Patient is going down the stairs almost trip which caused him to twist his right leg ankle. Patient denies falling down the stairs. Patient denies any cracking sound. Patient states since incident calf pain. Physical exam negative for Achilles tendon rupture. Positive for calf tenderness on palpation. Patient has normal gait. X-ray negative for any fractures. ultrasound negative for DVT. Patient explained worrisome signs and inforemd to return to the ED immediately. informed to follow-up with primary care provider. Patient informed there is no improvement he may need MRI Differential Diagnosis Differential Diagnoses: The differential diagnosis associated with the presentation includes (Calf strain, DVT, fracture, dislocation) Admission/Observation Consideration of admission/observation: Escalation of care including admission/observation considered Independent Interpretation I performed an independent interpretation of an: Plain X-Ray and Ultrasound Radiology Impression Discussion of test interpretation with radiology: I have reviewed the radiologist's reading. Independent Historian Clinical information obtained from an independent historian. History obtained from or confirmed by: Other (Patient) External Record Review External record reviewed: Other (Prior visits) Prescription Management I considered prescription management with: Pain Medication Discharge Plan Discharge Clinical Impression: Ankle sprain, Strain of right calf muscle Patient Disposition: Home, Self-Care Instructions: Ankle Sprain (ED), Leg Sprain (ED), R.I.C.E. Treatment (ED) Additional Instructions: Recommend follow-up with primary care provider. If no improvement you who may need MRI to make sure there is no muscle tear/ligament tear. Return to the ED immediately for any leg swelling, calf pain, coughing up blood, bluish black discoloration, hotness, coldness, fever, chills, red streaks, chest pain, shortness of breath, any other concerning symptoms. Prescriptions: New naproxen 500 mg tablet 500 mg PO BID PRN (Reason: pain) 7 Days Qty: 14 0RF No Action fluoxetine 10 mg capsule 1 cap PO DAILY acetaminophen [Tylenol] 325 mg tablet 650 mg PO Q6H PRN (Reason: pain) Qty: 14 0RF acetaminophen 500 mg tablet 1,000 mg PO QID PRN (Reason: pain) Qty: 30 0RF ondansetron HCl [Zofran] 4 mg tablet 4 mg PO Q8H PRN (Reason: nausea and vomiting) Qty: 10 0RF ibuprofen 400 mg tablet 400 mg PO Q6H PRN (Reason: pain) Qty: 20 0RF sucralfate 1 gram tablet 1 g PO TID Qty: 30 0RF erythromycin 5 mg/gram (0.5 %) ointment 0.5 inch ophthalmic (eye) QID 7 Days Qty: 3.5 0RF Afrin (oxymetazoline) 0.05 % mist 2 spray intranasal Q12H PRN (Reason: nasal congestion) 3 Days 0RF omeprazole 20 mg capsule,delayed release(DR/EC) 20 mg PO DAILY Qty: 14 0RF simethicone [Gas Relief (simethicone)] 180 mg capsule 180 mg PO BID PRN (Reason: abdominal distention) Qty: 14 0RF ibuprofen 600 mg tablet 600 mg PO Q6H PRN (Reason: pain) Qty: 20 0RF cyclobenzaprine 5 mg tablet 5 mg PO TID PRN (Reason: muscle spasm) Qty: 14 0RF amoxicillin-pot clavulanate 875-125 mg tablet 1 tab PO Q12H 7 Days Qty: 14 0RF Cepacol Sore Throat (marcei-men) 15-2.6 mg lozenge 1 lynette mucous membrane Q2-4H PRN (Reason: sore throat) Qty: 16 0RF cetirizine 10 mg tablet 10 mg PO DAILY escitalopram oxalate 5 mg tablet 3 mg PO Q OTHER DAY PRN triamcinolone acetonide 0.1 % ointment topical escitalopram oxalate 10 mg tablet 10 mg PO DAILY ketotifen fumarate 0.025 % (0.035 %) drops 1 drp ophthalmic (eye) BID pyridoxine (vitamin B6) 100 mg tablet 100 mg PO DAILY 90 Days Qty: 90 3RF Stand Alone Forms: Work/School Release Interventions: ED Discharge Assessment Last Done: 10/03/23 16:59 Discharge Date/Time: 10/03/23 17:00 Print Language: Swedish
[2023-10-03 15:46] VITALS: BP 97/66; PULSE 70; RESP 16; TEMP 36.7; O2SAT 98
[2023-10-03 16:59] VITALS: BP 97/66; PULSE 70; RESP 16; TEMP 36.7; O2SAT 98
== END 2023-10-03 17:00 | disposition home or self-care (01) ==
PROVIDERS: Emergency Provider Emergency Medicine; PCP Internal Medicine
DX: S93.401A Sprain of unspecified ligament of right ankle, initial encounter (principal); S96.911A Strain of unspecified muscle and tendon at ankle and foot level, right foot, initial encounter; W10.9XXA Fall (on) (from) unspecified stairs and steps, initial encounter; Y93.9 Activity, unspecified; Y92.9 Unspecified place or not applicable; Y99.9 Unspecified external cause status; M25.571 Pain in right ankle and joints of right foot
CPT/HCPCS: 73590; 73600; 73620; 93971; 99283; 99284

== ENCOUNTER 2024-01-26 11:14 | Outpatient (REF) | payer OTHER, SELFPAY ==
--- NOTE | ~2024-01-26 | US_ITS ---
EXAMINATION: US RETROPERITONEAL LIMITED (RENAL ONLY) CLINICAL INFORMATION: Calculus of kidney. COMPARISON: Renal ultrasound 01/12/2022 and 01/01/2021. CT abdomen and pelvis 04/16/2020. X-ray abdomen KUB 05/21/2015. TECHNIQUE: Real-time imaging of the kidneys. This case is submitted for review and dictation on 03/24/2024. FINDINGS: RIGHT KIDNEY: 13.3 x 5.8 x 5.1 cm (SAG x AP x TRV). The kidney is normal in size, contour, and echogenicity. Renal cortical thickness is normal. No calculi or focal parenchymal lesions. No hydronephrosis. LEFT KIDNEY: 11.9 x 5.3 x 5.3 cm (SAG x AP x TRV). The kidney is normal in size, contour, and echogenicity. Persistent although slightly improved hydronephrosis. 3 calculi are again demonstrated, the largest located in the mid pole measuring 1.3 x 0.5 x 0.9 cm, which has increased in size since the previous study. US/US renal BI IMPRESSION: Left renal calculi with mild to moderate hydronephrosis, slightly improved when compared with 01/12/2022. The largest stone is in the mid pole of the left kidney measuring 1.3 cm. Normal right kidney. Electronically signed by: Floyd Ramos MD 03/24/2024 02:17 PM [facility]
== END 2024-01-26 11:15 | disposition home or self-care (01) ==
LOC: HO.US 11:14
PROVIDERS: PCP Internal Medicine; Visit Provider Urology
DX: N20.0 Calculus of kidney (principal)
CPT/HCPCS: 76775

== ENCOUNTER 2024-03-08 15:40 | Emergency (ER) | payer OTHER, SELFPAY ==
[2024-03-08 15:54] VITALS: BP 100/63; PULSE 72; RESP 20; TEMP 36.4; O2SAT 97; BMI 34.3
--- NOTE | 2024-03-08 15:55 | ECG_ITS ---
Test Reason : DIZZINESS Blood Pressure : / mmHG Vent. Rate : 074 BPM Atrial Rate : 074 BPM P-R Int : 160 ms QRS Dur : 096 ms QT Int : 380 ms P-R-T Axes : 043 -09 -02 degrees QTc Int : 421 ms Normal sinus rhythm with sinus arrhythmia Minimal voltage criteria for LVH, may be normal variant ( R in aVL ) Nonspecific T wave abnormality Abnormal ECG No previous ECGs available Referred By: Marifer Miranda Electronically Signed By:DIXIE FREITAS MD
--- NOTE | 2024-03-08 15:55 | ED_ITS ---
HPI - General Adult General Chief complaint: Dizziness Stated complaint: dizziness Time Seen by Provider: 03/09/24 00:41 Source: patient Limitations: no limitations History of Present Illness ED Provider: Anjana Persaud PA-C HPI narrative: 44-year-old otherwise healthy male presents with dizziness times 2-3 days. Patient describes the dizziness as lightheadedness. It occurs randomly throughout the day. Denies recent illness, fever, nausea vomiting diarrhea. Denies cough cold symptoms. Denies position changes exacerbating the lightheadedness. Denies headache. Patient states he recently ran out of his citalopram, he has been off the medication for a week, he has no refills and is trying to get back on this medication. Otherwise, no medication changes. Related Data Home Medications ?Medication ?Instructions ?Recorded ?Confirmed fluoxetine 10 mg capsule 1 cap PO DAILY 03/08/20 02/04/23 cetirizine 10 mg tablet 10 mg PO DAILY 03/19/20 02/04/23 escitalopram oxalate 5 mg tablet 3 mg PO Q OTHER DAY PRN 06/12/20 02/04/23 triamcinolone acetonide 0.1 % topical 06/12/20 02/04/23 topical ointment escitalopram oxalate 10 mg tablet 10 mg PO DAILY 02/04/21 02/04/23 ketotifen fumarate 0.025 % (0.035 1 drp ophthalmic (eye) BID 02/04/21 02/04/23 %) eye drops Previous Rx's ?Medication ?Instructions ?Recorded acetaminophen 325 mg tablet 650 mg (2 x 325 mg) PO Q6H PRN 03/09/20 (Tylenol) pain #14 tabs ondansetron HCl 4 mg tablet 4 mg PO Q8H PRN nausea and 04/17/20 (Zofran) vomiting #10 tabs ibuprofen 400 mg tablet 400 mg PO Q6H PRN pain #20 tabs 05/18/20 sucralfate 1 gram tablet 1 g PO TID #30 tabs 07/15/20 acetaminophen 500 mg tablet 1,000 mg (2 x 500 mg) PO QID PRN 10/13/20 pain #30 tabs erythromycin 5 mg/gram (0.5 %) eye 0.5 inch ophthalmic (eye) QID 12/20/20 ointment Bacterial conjunctivitis 7 days #3.5 grams oxymetazoline 0.05 % nasal mist 2 spray intranasal Q12H PRN nasal 01/28/21 (Afrin (oxymetazoline)) congestion 3 days omeprazole 20 mg capsule,delayed 20 mg PO DAILY #14 caps 03/08/21 release simethicone 180 mg capsule (Gas 180 mg PO BID PRN abdominal 03/08/21 Relief (simethicone)) distention #14 caps cyclobenzaprine 5 mg tablet 5 mg PO TID PRN muscle spasm #14 10/10/22 tabs ibuprofen 600 mg tablet 600 mg PO Q6H PRN pain #20 tabs 10/10/22 pyridoxine (vitamin B6) 100 mg 100 mg PO DAILY 90 days #90 tabs 02/04/23 tablet amoxicillin 875 mg-potassium 1 tab PO Q12H 7 days #14 tabs 06/25/23 clavulanate 125 mg tablet benzocaine 15 mg-menthol 2.6 mg 1 lynette mucous membrane Q2-4H PRN 06/25/23 lozenges (Cepacol Sore Throat sore throat #16 ea (benzocaine-menthol)) naproxen 500 mg tablet 500 mg PO BID PRN pain 7 days #14 10/03/23 tabs escitalopram oxalate 20 mg tablet 20 mg PO DAILY #14 tabs 03/09/24 Allergies Allergy/AdvReac Type Severity Reaction Status Date / Time No Known Allergies Allergy Verified 03/08/24 15:55 [No Known Allergies*] Review of Systems 2 Review of Systems: Yes all other systems are reviewed and are negative Constitutional: Constitutional: Reports fatigue and Denies fever(s) Cardiovascular: Cardiovascular: Denies chest pain and Denies dyspnea Respiratory: Respiratory: Denies dyspnea Gastrointestinal: Gastrointestinal: Denies diarrhea, Denies nausea and Denies vomiting Endocrine: Endocrine: Reports fatigue PMFSH Past Medical History Attestation statement: The following information was validated with the patient. Medical History Kidney stones Migraines Surgical History History of removal of cyst Social History Social History Alcohol intake: never Smoked in Last 30 Days: No Use of substances other than those prescribed or required for medical reasons: No Advance Directives: No Advance Directives Information Provided: No Physical Exam ED Vital Signs: Vital Signs - 24 hr 03/08/24 15:54 03/08/24 21:39 03/09/24 00:03 Temperature 97.5 F 97.2 F 97.6 F Pulse Rate 72 70 63 Respiratory Rate 20 16 16 Blood Pressure 100/63 107/58 L 90/63 Pulse Oximetry 97 98 96 Oxygen Delivery Method Room Air Room Air Room Air BMI result Body Mass Index 34.3 Const Other: Alert, well in appearance Orientation/consciousness: patient oriented x3 Eyes Other: No nystagmus noted Resp Other: Nonlabored respiration Skin Other: Warm dry no rash Neuro General: patient oriented x3, gait normal, no focal motor deficits and CN's II- XI intact bilaterally Psych Other: Calm cooperative Course Course Course Narrative: This is a Rapid Medical Examination (RME) performed by Sirisha Miranda PA-C in triage. Full HPI, ROS, assessment and treatment plan per primary provider in the Main ED. 24 yo male here for eval of constant ALMAGUER and dizziness x2-3 days, worse in the morning. not exacerbated w/ position changes. no vision changes, N/V, fevers, neck pain. Plan: labs, viral swabs ekg, will defer any imaging to primary ED provider Medical Decision Making Medical Decision Making MDM Narrative: 44-year-old otherwise healthy male presents with dizziness times 2-3 days. Patient describes the dizziness as lightheadedness. It occurs randomly throughout the day. Denies recent illness, fever, nausea vomiting diarrhea. Denies cough cold symptoms. Denies position changes exacerbating the lightheadedness. Denies headache. Patient states he recently ran out of his citalopram, he has been off the medication for a week, he has no refills and is trying to get back on this medication. Otherwise, no medication changes. No relevant chronic issues History: Per patient I have considered the following differential diagnoses: Posterior circulation CVA, vertigo, anemia, dehydration, electrolyte abnormality, medication reaction Plan: Screening labs and a viral panel were obtained from triage, everything is completely normal. The patient does indicate that he abruptly stopped his escitalopram, some of the associated side effects are dizziness and lightheadedness. This is not posterior circulation CVA, he is 24, has no risk factors for vascular disease, he has no neurologic deficits on exam, is not ataxic. This is not vertigo, no nystagmus noted, position change does not exacerbate his symptoms. I have independently reviewed the following tests: Labs: No leukocytosis, not anemic, no electrolyte abnormality, viral panel negative Lab Data 03/08/24 16:30 03/08/24 16:29 Labs: Lab Results 03/08/24 03/08/24 Range/Units 16:29 16:30 WBC 8.0 (4.8-10.8) X10*3/uL RBC 4.91 (4.60-5.80) X10*6/uL Hgb 14.9 (14.0-18.0) g/dl Hct 43.3 (42.0-52.0) % MCV 88.2 (80.0-98.0) fL MCH 30.3 (27.0-33.0) pg MCHC 34.4 (31.0-36.0) g/dl RDW 12.1 (11.0-16.0) % Plt Count 288 (160-400) X10*3/uL MPV 9.0 L (9.4-12.4) fL Immature Gran % (Auto) 0.4 (0.0-0.4) % Neut % (Auto) 59.2 (45-73) % Lymph % (Auto) 29.1 (20-40) % Brantley % (Auto) 9.4 (2-11) % Eos % (Auto) 1.3 (0-4) % Baso % (Auto) 0.6 (0-2) % Lymph # (Auto) 2.3 (1.2-4.9) X10*3/uL Brantley # (Auto) 0.8 (0.1-1.2) X10*3/uL Eos # (Auto) 0.1 (0.0-0.4) X10*3/uL Baso # (Auto) 0.1 (0.0-0.2) X10*3/uL Abs Immat Gran (auto) 0.03 (0.00-0.03) X10*3/uL Absolute Neuts (auto) 4.7 (2.0-8.3) x10*3/uL Absolute Nucleated RBC 0.000 (0.0-0.012) X10*3/uL Nucleated RBC % (auto) 0.0 (0.0-0.2) /100WBC PT 13.0 H (10.9-12.4) SEC INR 1.1 (0.9-1.1) Sodium 140 (135-145) mmol/L Potassium 4.4 (3.3-5.1) mmol/L Chloride 104 (96-108) mmol/L Carbon Dioxide 28 (22-29) mmol/L Anion Gap 12 (12-20) BUN 15 (9-16) mg/dL Creatinine 0.86 (0.5-1.4) mg/dL Estim Creat Clear Calc 135.6 Estimated GFR > 60 Random Glucose 110 (60-115) mg/dL Calcium 9.8 D (8.4-10.2) mg/dL Magnesium 2.1 (1.6-2.6) mg/dL Total Bilirubin 0.4 (0.0-1.0) mg/dL AST 37 (5-37) U/L ALT 34 (0-40) U/L Alkaline Phosphatase 104 (39-117) U/L Troponin I High Sens < 2.7 (<3.5-35.0) ng/L Total Protein 7.4 (6.5-8.0) g/dL Albumin 4.3 (3.5-5.0) g/dL Influenza Type A (PCR) NEGATIVE (Negative) Influenza Type B (PCR) NEGATIVE (Negative) RSV RNA Qual (PCR) NEGATIVE (Negative) SARS-CoV-2 RNA (RT-PCR) NEGATIVE (Negative) Discharge Plan Discharge Clinical Impression: Intermittent lightheadedness Patient Disposition: Home, Self-Care Instructions: Lightheadedness (ED) Additional Instructions: All of your labs were normal including a viral panel. I do believe your symptoms are secondary to the abrupt cessation of the escitalopram. I will write a prescription for a week's worth of medication, you need to reach out to your primary care provider for additional refills of the medication. Prescriptions: New escitalopram oxalate 20 mg tablet 20 mg PO DAILY Qty: 14 0RF No Action fluoxetine 10 mg capsule 1 cap PO DAILY acetaminophen [Tylenol] 325 mg tablet 650 mg PO Q6H PRN (Reason: pain) Qty: 14 0RF acetaminophen 500 mg tablet 1,000 mg PO QID PRN (Reason: pain) Qty: 30 0RF ondansetron HCl [Zofran] 4 mg tablet 4 mg PO Q8H PRN (Reason: nausea and vomiting) Qty: 10 0RF ibuprofen 400 mg tablet 400 mg PO Q6H PRN (Reason: pain) Qty: 20 0RF sucralfate 1 gram tablet 1 g PO TID Qty: 30 0RF erythromycin 5 mg/gram (0.5 %) ointment 0.5 inch ophthalmic (eye) QID 7 Days Qty: 3.5 0RF Afrin (oxymetazoline) 0.05 % mist 2 spray intranasal Q12H PRN (Reason: nasal congestion) 3 Days 0RF omeprazole 20 mg capsule,delayed release(DR/EC) 20 mg PO DAILY Qty: 14 0RF simethicone [Gas Relief (simethicone)] 180 mg capsule 180 mg PO BID PRN (Reason: abdominal distention) Qty: 14 0RF ibuprofen 600 mg tablet 600 mg PO Q6H PRN (Reason: pain) Qty: 20 0RF cyclobenzaprine 5 mg tablet 5 mg PO TID PRN (Reason: muscle spasm) Qty: 14 0RF amoxicillin-pot clavulanate 875-125 mg tablet 1 tab PO Q12H 7 Days Qty: 14 0RF Cepacol Sore Throat (marcie-men) 15-2.6 mg lozenge 1 lynette mucous membrane Q2-4H PRN (Reason: sore throat) Qty: 16 0RF naproxen 500 mg tablet 500 mg PO BID PRN (Reason: pain) 7 Days Qty: 14 0RF cetirizine 10 mg tablet 10 mg PO DAILY escitalopram oxalate 5 mg tablet 3 mg PO Q OTHER DAY PRN triamcinolone acetonide 0.1 % ointment topical escitalopram oxalate 10 mg tablet 10 mg PO DAILY ketotifen fumarate 0.025 % (0.035 %) drops 1 drp ophthalmic (eye) BID pyridoxine (vitamin B6) 100 mg tablet 100 mg PO DAILY 90 Days Qty: 90 3RF Print Language: Kittitian
[2024-03-08 16:43] LABS: MANUAL DIFF FLAG NO
[2024-03-08 16:46] LABS: Basophils Absolute Auto 0.1 X10*3/uL (0.0-0.2); Basophils Percent Auto 0.6 % (0-2); Eosinophils Absolute Auto 0.1 X10*3/uL (0.0-0.4); Eosinophils Percent Auto 1.3 % (0-4); Hematocrit 43.3 % (42.0-52.0); Hemoglobin 14.9 g/dl (14.0-18.0); Imm Gran Abs Auto 0.03 X10*3/uL (0.00-0.03); Imm Gran Pct Auto 0.4 % (0.0-0.4); Lymphocytes Absolute Auto 2.3 X10*3/uL (1.2-4.9); Lymphocytes Percent Auto 29.1 % (20-40); Mean Corpuscular HGB Conc 34.4 g/dl (31.0-36.0); Mean Corpuscular Hemoglobin 30.3 pg (27.0-33.0); Mean Corpuscular Volume 88.2 fL (80.0-98.0); Monocytes Absolute Auto 0.8 X10*3/uL (0.1-1.2); Monocytes Percent Auto 9.4 % (2-11); Neutrophils Absolute Auto 4.7 x10*3/uL (2.0-8.3); Neutrophils Percent Auto 59.2 % (45-73); Platelet Count 288 X10*3/uL (160-400); Red Blood Count 4.91 X10*6/uL (4.60-5.80); Red Cell Distribution Width 12.1 % (11.0-16.0)
[2024-03-08 16:53] LABS: INTERNATIONAL NORM RATIO 1.1 (0.9-1.1)
[2024-03-08 17:02] LABS: Alanine Aminotransferase 34 U/L (0-40); Albumin Level 4.3 g/dL (3.5-5.0); Alkaline Phosphatase 104 U/L (39-117); Anion Gap 12 (12-20); Aspartate Amino Transferase 37 U/L (5-37); Bilirubin Total 0.4 mg/dL (0.0-1.0); Blood Urea Nitrogen 15 mg/dL (9-16); Calcium 9.8 mg/dL (8.4-10.2); Carbon Dioxide 28 mmol/L (22-29); Chloride 104 mmol/L (96-108); Creatinine Clr Calc Pharmacy 135.6; Estimated Glomerular Filt Rate > 60; Glucose Random 110 mg/dL (60-115); Magnesium 2.1 mg/dL (1.6-2.6); Potassium 4.4 mmol/L (3.3-5.1); Sodium 140 mmol/L (135-145); Total Protein 7.4 g/dL (6.5-8.0)
[2024-03-08 17:11] LABS: Troponin-I High Sensitivity < 2.7 ng/L (<3.5-35.0)
[2024-03-08 17:30] LABS: Influenza A PCR NEGATIVE (Negative); Influenza B PCR NEGATIVE (Negative); Resp Syncy Virus RNA Qual PCR NEGATIVE (Negative); SARS COV2 PCR INHOUSE NEGATIVE (Negative)
[2024-03-08 21:39] VITALS: BP 107/58; PULSE 70; RESP 16; TEMP 36.2; O2SAT 98
[2024-03-09 00:03] VITALS: BP 90/63; PULSE 63; RESP 16; TEMP 36.4; O2SAT 96
--- NOTE | 2024-03-09 00:04 | PC.NURSE ---
Report taken from Kika LLOYD, assumed care of pt at 1130. Pt sitting up on stretcher, A&Ox3 skin pwd respirations even unlabored. Reports slight dizziness. BP remains soft, MD notified. Requesting PO fluids and snack, both provided. Awaiting primary provider eval, aware of plan of care.
--- NOTE | 2024-03-09 01:52 | PC.NURSE ---
Provider to bedside for eval.
[2024-03-09 02:43] VITALS: BP 90/63; PULSE 63; RESP 16; TEMP 36.4; O2SAT 96
== END 2024-03-09 02:43 | disposition home or self-care (01) ==
PROVIDERS: Physician Assistant Medical; Emergency Provider Emergency Medicine; PCP Internal Medicine
DX: R42 Dizziness and giddiness (principal); Z03.818 Encounter for observation for suspected exposure to other biological agents ruled out
CPT/HCPCS: 0241U; 80053; 83735; 84484; 85025; 85610; 93005; 99283; 99285

== ENCOUNTER → 2024-03-08 15:55 | Outpatient (BNV) | payer OTHER, SELFPAY | PROVIDERS: Emergency Provider Emergency Medicine; PCP Internal Medicine; Visit Provider Internal Medicine Cardiovascular Disease | DX: R94.31 Abnormal electrocardiogram [ECG] [EKG] (principal) | CPT/HCPCS: 93010 ==

== ENCOUNTER 2024-04-13 13:59 | Emergency (ER) | payer OTHER, SELFPAY ==
--- NOTE | ~2024-04-13 | XR_ITS ---
EXAMINATION: XR TIBIA AND FIBULA, LEFT CLINICAL INFORMATION: Trauma, pain. COMPARISON: None available. TECHNIQUE: AP and lateral views of the left tibia and fibula were obtained. FINDINGS: The bones and soft tissues are normal. No fracture. No osseous lesions. XR/XR tibia fibula LT 2V IMPRESSION: Normal left tibia and fibula. Electronically signed by: Lawrence Su MD 04/13/2024 03:40 PM [facility] [place]
--- NOTE | ~2024-04-13 | XR_ITS ---
EXAMINATION: XR ANKLE, LEFT CLINICAL INFORMATION: trauma COMPARISON: None available. TECHNIQUE: AP, lateral, and mortise views of the left ankle. FINDINGS: Normal bone mineralization. No fracture, dislocation, or suspicious bone lesion. Normal alignment. Ankle mortise is intact. Talar dome is normal. No evidence of joint space abnormalities. Tiny dorsal calcaneal spur. No soft tissue abnormality. XR/XR ankle LT min 3V IMPRESSION: No acute findings left ankle. Electronically signed by: Lawrence Su MD 04/13/2024 03:42 PM EST
[2024-04-13 14:05] VITALS: BP 128/86; PULSE 83; O2SAT 99
[2024-04-13 14:06] VITALS: BP 110/72; PULSE 86; RESP 16; TEMP 36.7; O2SAT 98; BMI 35.2
--- NOTE | 2024-04-13 14:09 | ED_ITS ---
HPI - Extremity Injury (Lower) General Chief Complaint: Extremity Injury, Lower Stated Complaint: ANKLE PAIN S/P TWISTING PER EMS Time Seen by Provider: 04/13/24 16:00 Source: patient Limitations: no limitations History of Present Illness ED Provider: Anjana Persaud PA-C HPI Narrative: 24-year-old male who presents with left ankle pain. Patient states he was at the gym, he was jumping down from a box, he subsequently rolled the left ankle. Patient unable to ambulate, he states the pain radiates upward into the blount. Related Data Home Medications ?Medication ?Instructions ?Recorded ?Confirmed fluoxetine 10 mg capsule 1 cap PO DAILY 03/08/20 02/04/23 cetirizine 10 mg tablet 10 mg PO DAILY 03/19/20 02/04/23 escitalopram oxalate 5 mg tablet 3 mg PO Q OTHER DAY PRN 06/12/20 02/04/23 triamcinolone acetonide 0.1 % topical 06/12/20 02/04/23 topical ointment escitalopram oxalate 10 mg tablet 10 mg PO DAILY 02/04/21 02/04/23 ketotifen fumarate 0.025 % (0.035 1 drp ophthalmic (eye) BID 02/04/21 02/04/23 %) eye drops Previous Rx's ?Medication ?Instructions ?Recorded acetaminophen 325 mg tablet 650 mg (2 x 325 mg) PO Q6H PRN 03/09/20 (Tylenol) pain #14 tabs ondansetron HCl 4 mg tablet 4 mg PO Q8H PRN nausea and 04/17/20 (Zofran) vomiting #10 tabs ibuprofen 400 mg tablet 400 mg PO Q6H PRN pain #20 tabs 05/18/20 sucralfate 1 gram tablet 1 g PO TID #30 tabs 07/15/20 acetaminophen 500 mg tablet 1,000 mg (2 x 500 mg) PO QID PRN 10/13/20 pain #30 tabs erythromycin 5 mg/gram (0.5 %) eye 0.5 inch ophthalmic (eye) QID 12/20/20 ointment Bacterial conjunctivitis 7 days #3.5 grams oxymetazoline 0.05 % nasal mist 2 spray intranasal Q12H PRN nasal 01/28/21 (Afrin (oxymetazoline)) congestion 3 days omeprazole 20 mg capsule,delayed 20 mg PO DAILY #14 caps 03/08/21 release simethicone 180 mg capsule (Gas 180 mg PO BID PRN abdominal 03/08/21 Relief (simethicone)) distention #14 caps cyclobenzaprine 5 mg tablet 5 mg PO TID PRN muscle spasm #14 10/10/22 tabs ibuprofen 600 mg tablet 600 mg PO Q6H PRN pain #20 tabs 10/10/22 pyridoxine (vitamin B6) 100 mg 100 mg PO DAILY 90 days #90 tabs 02/04/23 tablet amoxicillin 875 mg-potassium 1 tab PO Q12H 7 days #14 tabs 06/25/23 clavulanate 125 mg tablet benzocaine 15 mg-menthol 2.6 mg 1 lynette mucous membrane Q2-4H PRN 06/25/23 lozenges (Cepacol Sore Throat sore throat #16 ea (benzocaine-menthol)) naproxen 500 mg tablet 500 mg PO BID PRN pain 7 days #14 10/03/23 tabs escitalopram oxalate 20 mg tablet 20 mg PO DAILY #14 tabs 03/09/24 Allergies Allergy/AdvReac Type Severity Reaction Status Date / Time No Known Allergies Allergy Verified 04/13/24 14:09 [No Known Allergies*] Review of Systems Review of Systems: Yes all other systems are reviewed and are negative Constitutional: Constitutional: Denies fatigue and Denies fever(s) Musculoskeletal: Musculoskeletal: Reports arthralgias, Denies joint swelling, Denies numbness and Denies tingling Neurologic: Denies numbness and Denies tingling Endocrine: Endocrine: Denies fatigue COUNT INCLUDES THE [facility] Past Medical History Attestation statement: The following information was validated with the patient. Medical History Kidney stones Migraines Surgical History History of removal of cyst Social History Social History Alcohol intake: never Do you have a plan to hurt others: No Plan Physical Exam Vital Signs: Vital Signs: Last Vital Signs Temp 98.1 F 04/13/24 14:06 Pulse 86 04/13/24 14:06 Resp 16 04/13/24 14:06 BP 110/72 04/13/24 14:06 Pulse Ox 98 04/13/24 14:06 O2 Del Method Room Air 04/13/24 14:06 BMI result Body Mass Index 35.2 Const: Other: Alert well-appearing Orientation/consciousness: patient oriented x3 Resp: Effort & Inspection: normal respiratory effort Cardio: Other: Normal peripheral perfusion Skin: Other: Warm dry no rash Neuro: General: patient oriented x3, no focal motor deficits and CN's II-XI intact bilaterally Extrem: Other: Limited flexion extension from the ankle, there was no deformity, palpable pain over entire ankle no regions that are focal. There was palpable pain mid blount, again without deformity. Psych: Other: Calm cooperative Course Course Course Narrative: This is a rapid medical exam performed by Anjana Persaud PA-C. The patient is a 24-year-old male who presents with left ankle pain. Patient states he was at the gym, he was jumping down from a box, he subsequently rolled the left ankle. Patient unable to ambulate, he states the pain radiates upward into the blount. On exam, there was no obvious deformity, he has palpable pain mid blount as well as over the entire ankle. Limited range of motion in flexion and extension of the ankle. We will obtain x-rays of the tib-fib and the ankle. No indication for labs at this time. The patient is stable and can return to the waiting room pending his full medical assessment. Medical Decision Making Medical Decision Making MDM Narrative: 24-year-old male who presents with left ankle pain. Patient states he was at the gym, he was jumping down from a box, he subsequently rolled the left ankle. Patient unable to ambulate, he states the pain radiates upward into the blount. No relevant chronic issues History: Per patient I have considered the following differential diagnoses: Fracture, dislocation, sprain Plan: X-rays were obtained of tib-fib and ankle, unremarkable, no fracture no dislocation. The patient has a sprain. We will send with crutches and Aircast and home care instructions. I have independently reviewed the following tests: X-ray ankle: IMPRESSION: No acute findings left ankle. X-ray tib-fib:MPRESSION: Normal left tibia and fibula. Discharge Plan Discharge Clinical Impression: Left ankle sprain Patient Disposition: Home, Self-Care Instructions: Ankle Sprain (ED), Ankle Stirrup Splint (ED), Crutch Instructions (ED), R.I.C.E. Treatment (ED) Additional Instructions: The x-rays of the ankle and of your tibia and fibula were negative for fracture or dislocation. You sustained a sprain. See home care instructions. Use the Aircast to help support the joint, use the crutches as needed to ambulate and bear weight. You will find better support and relief from using a compression sleeve for the ankle. You can purchase this at any pharmacy. You can alternate the use of [id number] ibuprofen 600 mg taken every 6 hours with food, with [id number] Tylenol 1000 mg taken every 8 hours. Follow up with your primary care provider as needed. Prescriptions: No Action fluoxetine 10 mg capsule 1 cap PO DAILY acetaminophen [Tylenol] 325 mg tablet 650 mg PO Q6H PRN (Reason: pain) Qty: 14 0RF acetaminophen 500 mg tablet 1,000 mg PO QID PRN (Reason: pain) Qty: 30 0RF ondansetron HCl [Zofran] 4 mg tablet 4 mg PO Q8H PRN (Reason: nausea and vomiting) Qty: 10 0RF ibuprofen 400 mg tablet 400 mg PO Q6H PRN (Reason: pain) Qty: 20 0RF sucralfate 1 gram tablet 1 g PO TID Qty: 30 0RF erythromycin 5 mg/gram (0.5 %) ointment 0.5 inch ophthalmic (eye) QID 7 Days Qty: 3.5 0RF Afrin (oxymetazoline) 0.05 % mist 2 spray intranasal Q12H PRN (Reason: nasal congestion) 3 Days 0RF omeprazole 20 mg capsule,delayed release(DR/EC) 20 mg PO DAILY Qty: 14 0RF simethicone [Gas Relief (simethicone)] 180 mg capsule 180 mg PO BID PRN (Reason: abdominal distention) Qty: 14 0RF ibuprofen 600 mg tablet 600 mg PO Q6H PRN (Reason: pain) Qty: 20 0RF cyclobenzaprine 5 mg tablet 5 mg PO TID PRN (Reason: muscle spasm) Qty: 14 0RF amoxicillin-pot clavulanate 875-125 mg tablet 1 tab PO Q12H 7 Days Qty: 14 0RF Cepacol Sore Throat (marcie-men) 15-2.6 mg lozenge 1 lynette mucous membrane Q2-4H PRN (Reason: sore throat) Qty: 16 0RF naproxen 500 mg tablet 500 mg PO BID PRN (Reason: pain) 7 Days Qty: 14 0RF escitalopram oxalate 20 mg tablet 20 mg PO DAILY Qty: 14 0RF cetirizine 10 mg tablet 10 mg PO DAILY escitalopram oxalate 5 mg tablet 3 mg PO Q OTHER DAY PRN triamcinolone acetonide 0.1 % ointment topical escitalopram oxalate 10 mg tablet 10 mg PO DAILY ketotifen fumarate 0.025 % (0.035 %) drops 1 drp ophthalmic (eye) BID pyridoxine (vitamin B6) 100 mg tablet 100 mg PO DAILY 90 Days Qty: 90 3RF Print Language: Ug[place]an
[2024-04-13 16:18] VITALS: BP 112/68; PULSE 78; RESP 16; TEMP 36.7; O2SAT 98
== END 2024-04-13 16:21 | disposition home or self-care (01) ==
PROVIDERS: Emergency Provider Emergency Medicine; PCP Internal Medicine
DX: S93.402A Sprain of unspecified ligament of left ankle, initial encounter (principal); X50.1XXA Overexertion from prolonged static or awkward postures, initial encounter; Y93.39 Activity, other involving climbing, rappelling and jumping off; Y92.39 Other specified sports and athletic area as the place of occurrence of the external cause; Y99.9 Unspecified external cause status
CPT/HCPCS: 73590; 73610; 99283

== ENCOUNTER → 2024-04-13 14:09 | Outpatient (BNV) | payer OTHER, SELFPAY | PROVIDERS: Emergency Provider Emergency Medicine; PCP Internal Medicine; Visit Provider Radiology Diagnostic Radiology | DX: M25.572 Pain in left ankle and joints of left foot (principal); M79.605 Pain in left leg | CPT/HCPCS: 73590; 73610 ==

== ENCOUNTER → 2024-10-06 14:16 | Outpatient (BNVA) | payer OTHER, SELFPAY | PROVIDERS: PCP Internal Medicine; Visit Provider Physician Assistant Surgical ==

== ENCOUNTER 2024-12-08 08:02 | Outpatient (AMB) | payer OTHER, SELFPAY ==
--- OUTSIDE RECORDS SUMMARY | 2024-12-08 08:07 | XMS_ITS | Clinical Summary ---
Author Organization [facility] Address [address] [place] [id number] Phone Care Team Providers Care [address] Name Role Phone Unavailable Primary Care Provider Unavailabl e Allergies No known active allergies Medications ibuprofen 600 MG tabletIndications :Migraine without status migrainosus, not intractable, unspecified migraine type One tab every 6 hours as needed for headache. 30 tablet 2 8 Active acetaminophen 325 MG tablet TAKE 2 TABLETS BY MOUTH EVERY 4 HOURS NEEDED FOR PAIN 0 9 Active triamcinolone 0.1 % ointmentIndicatio ns:Atopic dermatitis, unspecified type Apply topically 2 (two) times a day as needed (eczema on your body (not for your face)). Stop when skin feels smooth. 30 g 1 1 Active hydrocortisone 2.5 % ointmentIndicatio ns:Atopic dermatitis, unspecified type Apply topically 2 (two) times a day as needed for rash. For eyelids/face needed 20 g 1 1 Active diphenhydrAMINE (Benadryl Allergy) 25 MG tabletIndications :Atopic dermatitis, unspecified type Take 1 tablet (25 mg total) by mouth nightly as needed for itching. Can take 1-2 tablets prior to bed for itching. 30 tablet 1 Active escitalopram 10 MG tablet Take 10 mg by mouth once daily. 1 Active alclomethasone 0.05 % cream 2 Active benzoyl peroxide 5 % external wash APPLY TO FACE AND WASH OFF TWICE DAILY 2 Active clindamycin 1 % gel APPLY TOPICALLY TO FACE EVERY DAY 2 Active fluocinonide 0.05 % cream 2 Active Dupixent 300 MG/2ML solution pen-injector 3 Active ketoconazole 2 % cream APPLY TO BACK OF NECK AND ARMS TWICE DAILY NEEDED 2 Active Lactobacillus-Insherin sari ([facility]) capsuleIndication s:Diarrhea of presumed infectious origin Take 1 capsule by mouth 3 (three) times a day with meals. To help prevent or treat diarrhea 30 capsule 2 3 Active Nasal Decongestant [place] 0.05 % nasal sprayIndications: Seasonal allergic rhinitis due to pollen Administer 2 sprays into each nostril 2 (two) times a day. Do NOT use for more than 3 days 1 Units 3 3 Active tretinoin 0.025 % cream APPLY TO MOLLUSCUM STARTING EVERY 2 TO 3 NIGHTS AND INCREASING TO EVERY NIGHT AT BEDTIME TOLERATED 3 Active ketotifen 0.025 % ophthalmic solutionIndicatio ns:Seasonal allergic rhinitis due to pollen Administer 1 drop into both eyes 2 (two) times a day. 5 mL 3 3 Active fluticasone 50 MCG/ACT nasal sprayIndications: Seasonal allergic rhinitis due to pollen SHAKE LIQUID AND USE 2 SPRAYS IN EACH NOSTRIL DAILY 16 g 3 3 Active cetirizine 10 MG tabletIndications :Seasonal allergic rhinitis due to pollen Take 1 tablet (10 mg total) by mouth once daily. 90 tablet 3 Active Active Problems Problem Noted Date Diagnosed Date Calculus of kidney 07/01/2021 Hydronephrosis of left kidney 07/01/2021 Overview (07/01/2021): Saw urology 02/20- suggested he needs f/u and reg imaging. History of COVID-19 01/30/2021 Overview (01/30/2021): Tested + 01/27/21 at [facility] Flexural eczema 01/12/2021 Assessment & Plan (01/12/2021 7:49 AM EDT): Instructions given: New prescription: clobetasol cream. Apply to elbows, knees, finger twice a day, until the eczema rash resolves, up to two weeks. After stopping the clobetasol, keep using the triamcinolone cream as prescribed. Do not use clobetasol or triamcinolone on the eyelids. They are too strong. Use the 2.5% hydrocortisone cream on the eyelids if needed. Apply CeraVe all over your body at least twice a day. Apply it right after your shower and after washing your hands. Can also try Aquaphor or petroleum jelly. Use only sensitive skin soaps. Use f ree and clear laundry detergent, fabric softener and dryer sheets. Take cetirizine every morning as prescribed. If needed for itch, can take Benadryl at bedtime. Anxiety 10/29/2016 Overview (06/26/2020): Sees :Krista Koch prescribes, also sees a therapist at [facility], sees 1-2 times weekly. Assessment & Plan (07/01/2021 10:35 AM EST): Krista Koch prescribes, also sees a therapist at [facility], sees 1-2 times weekly. Feels he is doing well, no recent med change. Psychosocial stressors 10/29/2016 Childhood obesity 09/15/2010 Seasonal allergic rhinitis due to pollen 010 Atopic dermatitis 01/09/2010 Overview (05/10/2020): Sensitive skin care. Assessment & Plan (05/10/2020 2:00 PM EST): Worsening/poorly controlled eczema by history, though hard to tell from photos. I reiterated sensitive skin care, including switching laundry detergents to ALL Free and Clear. New rx for triamcinolone 0.1% ointment for arms and finger, hydrocortisone 2.5% ointment for eyelids, to continue CeraVe moisturizing ointment and mild soap. To start his Zyrtec qday, and can use Benadryl (Rx done) 25-50mg qhs prn. F/u 1-2 weeks if not improving (sooner if worsening), should be in person so we can see his skin. Resolved Problems Problem Noted Date Diagnosed Date Resolved Date Right ankle sprain 01/22/2017 7 Overview (01/22/2017): Seen in ER 01/14 at [facility]. Neg xray. Immunizations Immunization Administration Dates Next Due COVID-19 Pfizer, bivalent, 12+ years 03/24/2022 COVID-19 Pfizer, monovalent, 12+ years 1 DTaP 5 03/31/2006, 3,2001,07/06,2001 H1N1 05/06/2009,03/27/2009 HPV, Quadrivalent 03/28/2013,11/22/2012,09/20/19 13 Hep A, ped/adol 10/05/2013,09/15/2010 Hep B, ped/adol 2001,2001,2001 Hib (PRP-T) 06/12/2002, 2,2001,05/24 IPV 03/31/2006, 3,2001,05/24 Influenza Split 02/08/2013,01/08/2011,01/09/2010 Influenza, injectable, quadrivalent 07/04/2014 Influenza, injectable, quadr ivalent, preservative free 03/24/2022,03/05/2021,03/23/2020,06/22,03/07/2018,01/22/2017,01/08/2016 ,01/17/2015 Influenza, injectable, trivalent 03/27/2009,10/05/2008 MMR 06/10/2005,03/20/2002 Meningococcal Conj (Menactra) MCV4P 03/07/2018,0 09/19/2012 Pneumococcal Conjugate 09/20/2002,2001,2001,05/24 Tdap 09/19/2012 Varicella 03/31/2006,03/20/2002 Family History Medical History Relation Name Comments No Known Problems Father brian No Known Problems Half-Brother arleen Walters No Known Problems Half-Sister 1 latonya Walters No Known Problems Half-Sister 2 Kaleigh Ott Stroke Maternal Grandmother No Known Problems Mother kristal Asthma Other 1 Deafness Other 1 Heart disease (Premature) Other 1 Hyperlipidemia Other 1 Migraines Other 1 Obesity Other 1 Osteoporosis Other 1 Seizures Other 1 Sudden Other 1 Thrombophilia Other 1 Relation Name Status Comments Father brian Alive Father: Alive a nd well Half-Brother arleen Walters Alive Half brother ( M): Alive and well Half-Sister 1 latonya Walters Alive Half sister (M): Alive and well Half-Sister 2 Kaleigh Ott Alive Maternal Grandmother Materna l grandmother: Seizure disorder, Stroke Mother kristal Alive Mother: Alive a nd well Other 1 Other 2 Family history of Sudden /GA under 55, Family history of Diabetes mellitus, Family history of *CVA/Stroke, Family history of Elevated cholesterol, No family history of Cancer, Family history of Seizure disorder, Family history of Deafness, Family history of Osteoporosis, Family history of Hyperlipidemia, Family history of *Dental caries, Family history of Obesity, Family history of Migraines, Family history of *Thrombophilia, Family history of Asthma, Family history of *Heart Disease Social History Tobacco Use Types Packs/Day Years Used Date Smoking Tobacco: Never Smokeless Tobacco: Never Tobacco Cessation:Counseling Given: Yes Alcohol Use Standard Drinks/Week Comments No 0 (1 standard drink = 0.6 oz pur e alcohol) Hunger/Food Answer Date Recorded In the last 12 months, did y ou or your family ever eat less than you felt you should because there wasn't enough money for food? No 07/01/2021 Stable Housing Answer Date Recorded Are you worried that in the next 2 months you may not have stable housing? No 07/01/2021 Transportation Concerns Answer Date Rec orded In the last 12 months, have you or your family ever had to go without healthcare because you didn't have a way to get there? No 07/01/2021 Hazards in Home Answer Date Recorded Think about the place you li ve. Do you have problems with any of the following? Pests (mice or roaches), mold, no/not working smoke detectors, water leaks, no window guards. No 2021 Financing Utilities Answer Date Recorde d In the last 12 months, has t he electric, gas, oil, or water company threatened to shut off your services in your home? No 07/01/2021 Safety at Home Answer Date Recorded Are you or your family worried about feeling saf e in your home? No 07/01/2021 Outside Support Answer Date Recorded Do you feel that you need mo re support from other people or programs to help you care for yourself or your family? No 07/01/2021 Understanding Health Concerns Answer Da te Recorded Do you need help understandi ng your or your child's healthcare needs (diagnosis, medications, plan, etc.)? No 07/01/2021 Financing Health Concerns Answer Date R ecorded In the last 12 months, was t here a time when your child needed to see a doctor or get medications or supplies but could not because of cost? No 07/01/2021 Missing School or Work Answer Date Zeeshan rded Did you or your child miss s chool or work because of a health problem that could have been avoided? No 07/01/2021 Sex and Gender Information Value Date Recorded Sex Assigned at Male 06/22/2019 3:55 PM EST Legal Sex Male 5:15 PM EDT Gender Identity Male 06/22/2019 3:55 PM EST Sexual Orientation Straight 06/22/2019 3: 55 PM EST Last Filed Vital Signs Vital Sign Reading Time Taken Comments Blood Pressure 96/63 05/19/2022 2:36 PM EST Pulse 105 05/19/2022 2:36 PM EST Temperature 36.1 C (97 F) 07/30/2022 1:39 PM EDT Respiratory Rate - - Oxygen Saturation 99% 12/04/2019 2:30 PM EDT Inhaled Oxygen Concentration - - Weight 96.8 kg (213 lb 6.4 oz) 07/30/2022 1:39 P M EDT Height 161.3 cm (5' 3.5 ) 08/12/2021 4:38 PM EDT Body Mass Index 37.21 08/12/2021 4:38 PM EDT Plan of Treatment Health Maintenance Due Date Last Done Comments Men B Vaccine (1 of 2 - Standard) 2017 DTaP,Tdap,and Td Vaccines (7 - Td or Tdap) 09/19/2022 09/19/2012, 03/31/2006, 09/20/2002, Additional history exists COVID-19 Vaccine (5 - 2023-2 5 season) 2024 03/24/2022, 03/31/2021, 09/25/2020, Additional history exists Influenza Vaccines (#1) 2024 03/24/20, 03/05/2021, 03/23/2020, Additional history exists Hepatitis B Vaccines Completed 2001, 2001, 2001 HIB Vaccines Completed 06/12/2002, 08/31, 2001, Additional history exists Pneumococcal Vaccine Completed 09/20/2002, 2001, 2001, Additional history exists MMR Vaccines Completed 06/10/2005, 03/20/2002 IPV Vaccines Completed 03/31/2006, 06/03, 2001, Additional history exists Varicella Vaccines Completed 03/31/2006, 03/20/2002 HPV Vaccines Completed 03/28/2013, 072 07/2012, 09/19/2012 Hepatitis A Vaccines Completed 10/05/2013, 09/16/19 Meningococcal Vaccine Completed 03/07/2018, 013
--- NOTE | 2024-12-08 08:08 | MHC.OFFVISWM ---
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* Allergies No Known Allergies (No Known Allergies*) Allergy (Verified 12/08/24 08:08) Medication List - Last Reconciled 12/08/24 by Rafi Matute MD acetaminophen (Tylenol) 650 mg (2 x 325 mg) PO Q6H PRN acetaminophen 1,000 mg (2 x 500 mg) PO QID PRN cetirizine 10 mg PO DAILY dupilumab (Dupixent) 200 mg subcut Q2W escitalopram oxalate 20 mg PO DAILY ibuprofen 600 mg PO Q6H PRN HPI HPI 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*: Details: Start time: 8.01am, End time: 8.42am ?I spent 36 minutes speaking with the patient on the phone plus an additional 5 minutes reviewing and updating records for a total of 41 minutes HPI Comments Details: Previous weight loss efforts: Gym daily Wakes up: 6am, Sleeps: 9pm Breakfast: 8am (protein waffle) Lunch: 11am (yogurt with bread or Nutela) Dinner: 5pm (rice, beans and chicken) Snacks: 10am (chips), 2-3pm (ice cream) Exercise: Gym daily Beverages: Coffee: Mushroom coffee with honey, Tea: none, Soda: Gingerale daily, Juice: none, ETOH: none PFSH Medical History (Updated 12/08/24 @ 08:33 by Rafi Matute MD) Obesity Kidney stones Migraines Surgical History History of removal of cyst Family History (Updated 10/06/24 @ 14:40 by Joanna Dee CMA) Mother Arthritis Father Migraines Social History (Updated 10/06/24 @ 14:40 by Joanna Dee CMA) Alcohol intake: never Patient Tobacco Use Status: Never used Tobacco Telehealth Telehealth Telehealth Platform: Telephone Location of provider rendering services: practice address Location of patient: address on file Patient Identification confirmed using: Name, : Yes Telehealth method: voice only Patient verbally consented to treatment: Yes Patient verbally consented to billing insurance company: Yes Patient informed of any privacy concerns related to visit: Yes Minutes spent on Phone/Video with Pt.: 41 Assessment & Plan Assessment & Plan (1) Obesity: Code(s): E66.9 - Obesity, unspecified Category: Medical Qualifiers: Obesity type: due to excess calories Obesity classification: adult class 2 (BMI 35 - 39.9) Serious obesity comorbidity presence: without serious comorbidity Body mass index: BMI 37.0-37.9 Qualified Code(s): E66.812 - Obesity, class 2; E66.09 - Other obesity due to excess calories; Z68.37 - Body mass index [BMI] 37.0-37.9, adult Plan: 1.?Nutritional counseling. Start with one premade PREMIER protein (buy at [employer] or [employer]) shake (mix 4oz of Premier mixed with 4oz low fat unsweetened almond milk each) at 7am-9am, one protein bar (Fit Crunch protein bar, buy at [employer], or [employer]) at 10am-12pm, another premade PREMIER protein shake (mix 4oz of Premier mixed with 4oz low fat unsweetened almond milk each) at 1pm-3pm, another Fit Crunch protein bar,? dinner at 7pm (10 forks of protein and 10 forks of salad/vegetables). So you do 2 protein shakes, 2 protein bars and one meal per day. Meal to include lean meat (beef, fish, pork, turkey, chicken), or northern irish yogurt, or egg whites, or beans with a salad with olive oil and fruits (berries, pears, apples, kiwi). Avoid salt, breads, potatoes, rice, pasta, desserts. 3. Each shake would be drunk slowly, like coffee in a period of 2 hours. 4. Cut each bar in 4 pieces and eat each piece in 30min ?to make each bar last 2 hours. 5. I emphasized the importance of measuring accurately the food portion and measure it when serving the food in plate 6. The meal portions include 10 full-size forks of meat and 10 full-size forks of salad. You always eat the meat portion but you can replace up to 5 forks for salad/vegetables with rice, potatoes or pasta, or a fruit ?if you like. The less you do it the better weight loss will be. 7. One full-size fork is what it can be scooped on the fork without falling aside and not what can be bit with the fork. Use regular forks like those you find in a typical restaurant. 8.? Please buy the body composition scale we discussed and send me weight measurements as soon as possible and then once a week. Always include your diet and exercise plan. 9. Start treadmill with an incline of 2.0 and speed of 3.0. Increase incline by 1 every 3 min to a max incline of 8.0, stay 3min at 8.0 and then return to 2.0 and repeat same steps until calorie goal is met. Goal is to burn 2000 calories per week on exercise, which means either 300 calories daily, or 400 calories 5 days per week, or 500 calories 4 days per week, or 650 calories 3 days per week. 10. Start the Phentermine daily at 10am. We discussed the potential side-effects of the Phentermine such as irritability, dry mouth, difficulty sleeping, dizziness, numbness in feet and high blood pressure. I asked her to get a blood pressure monitor and measure the blood pressure daily in the morning and evening. He needs to send the blood pressure readings daily and to call the office for blood pressure over 140/80 and he understands that. 11. Goal to lose at least 10% of your weight, which is about 21lbs. Minimum weight goal: 190lbs 12. Please follow the diet plan exactly without any change. If you don't like something about the plan or you feel hungry you need to communicate with me so I can help you revise the plan. You should not change the plan yourself Medications: New phentermine must administer 30 minutes before or 1-2 hours after breakfast 37.5 mg PO DAILY 30 caps 0RF E66.09 - Other obesity due to excess calories, E66.812 - Obesity, class 2, Z68.37 - Body mass index [BMI] 37.0-37.9, adult
[2024-12-08 08:24] VITALS: BMI 37.2
== END 2024-12-08 08:43 | disposition home or self-care (01) ==
LOC: HO.HBS 08:02
PROVIDERS: PCP Internal Medicine; Visit Provider Surgery
DX: E66.812 Obesity, class 2 (principal); E66.09 Other obesity due to excess calories; Z68.37 Body mass index [BMI] 37.0-37.9, adult
CPT/HCPCS: 99203

== ENCOUNTER → 2025-01-05 15:29 | Outpatient (BNVA) | payer OTHER, SELFPAY | PROVIDERS: PCP Internal Medicine; Visit Provider Physician Assistant Surgical | DX: E11.9 Type 2 diabetes mellitus without complications (principal) ==